=== PATIENT | female | born 1995 | race Caucasian/White ===

== ENCOUNTER 2024-03-31 08:13 | Outpatient (RCR) | payer OTHER, SELFPAY ==
[2024-03-31 09:15] VITALS: BP 126/73; PULSE 85
== END 2024-06-03 08:19 | disposition home or self-care (01) ==
LOC: ANHOBOP 08:13
PROVIDERS: Visit Provider Obstetrics & Gynecology
DX: O36.8130 Decreased fetal movements, third trimester, not applicable or unspecified (principal); Z3A.34 34 weeks gestation of pregnancy
CPT/HCPCS: 59025

== ENCOUNTER 2024-04-22 14:26 | Outpatient (CLI) | payer OTHER, SELFPAY ==
[2024-04-22 14:56] VITALS: BP 131/83; PULSE 93
[2024-04-22 14:57] LABS: Basophils Percent Auto 0.2 % (0.2-1.2); Eosinophils Absolute Auto 0.1 K/mm3 (0-0.3); Eosinophils Percent Auto 0.4 % (0-4.4); Hematocrit 37.6 % (37.0-47.0); Hemoglobin 12.5 g/dL (12.0-15.0); Immature Granulocyte Absolute 0.05 K/mm3 (0.00-0.031); Immature Granulocyte Percent A 0.4 % (0-0.5); Lymphocytes Absolute Auto 1.61 K/mm3 (0.9-3.2); Lymphocytes Percent Auto 11.9 % (18.3-44.2); Mean Corpuscular HGB Conc 33.2 g/dl (32-36); Mean Corpuscular Hemoglobin 29.3 pg (26-34); Mean Corpuscular Volume 88.3 fl (80-100); Mean Platelet Volume 10.1 fl (7.4-10.4); Monocytes Absolute Auto 0.5 K/mm3 (0.1-0.6); Monocytes Percent Auto 3.8 % (2.6-8.5); Neutrophils Absolute Auto 11.3 K/mm3 (1.3-6.7); Neutrophils Percent Auto 83.3 % (45.5-73.1); Platelet Count Result 318 k/mm3 (150-375); Red Blood Count 4.26 M/mm3 (4.2-5.4); Red Cell Distribution Width 14.2 % (11.5-14.5); White Blood Count 13.6 K/mm3 (4.5-10.0)
[2024-04-22 15:00] VITALS: BP 128/80; PULSE 88
[2024-04-22 15:07] LABS: Alanine Aminotransferase 14 U/L (6-35); Albumin Level 3.8 g/dL (3.5-5.1); Alkaline Phosphatase 147 U/L (38-126); Anion Gap 11 mmol/L (4-12); Aspartate Amino Transferase 17 U/L (14-36); Bilirubin,Total 0.3 mg/dL (0.2-1.3); Blood Urea Nitrogen 8 mg/dL (7-17); Calcium 9.3 mg/dL (8.4-10.2); Carbon Dioxide 19 mmol/L (22-30); Chloride 107 mmol/L (98-107); Estimated Glomerular Filt Rate > 60; Glucose 127 mg/dL (65-110); Sodium 137 mmol/L (137-145); Uric Acid 4.3 mg/dL (2.5-7.5)
[2024-04-22 15:15] VITALS: BP 120/70; PULSE 79
[2024-04-22 15:20] LABS: Total Protein Urine Random 24 mg/dL; Ur Ttl Prot Creatinine Ratio 0.17 mg/mg (0-0.20)
[2024-04-22 15:24] LABS: Appearance Urine Cloudy (Clear); Bacteria Urine 1+ /hpf; Bilirubin Urine Negative (Negative); Blood Urine Negative (Negative); Color Urine Yellow (Yellow); Glucose Urine UA Negative (Negative); Ketones Urine Trace mg/dL (Negative); Leukocyte Esterase Ur 1+ LEU/UL (Negative); Need Manual Microscopic Reviewed; Nitrate Urine Negative (Negative); Non Pathogenic Casts 0-2; Protein Urine 1+ mg/dL (Negative); Specific Grav Ur 1.021 (1.001-1.035); Squamous Epithelial Cell Urine Many /hpf (Few); WBC Urine 21-50 /hpf (0-3); pH Urine 6.5 (5.0-9.0)
[2024-04-22 15:25] LABS: Add Urine Microscopic? YES
[2024-04-22 15:30] VITALS: BP 119/62; PULSE 80
[2024-04-22 15:40] VITALS: BP 128/80; PULSE 80
== END 2024-04-22 15:42 | disposition home or self-care (01) ==
LOC: ANHOBOP 14:32 → ANHLDR 14:40
PROVIDERS: PCP Physician Assistant; Visit Provider Obstetrics & Gynecology
DX: O13.9 Gestational [pregnancy-induced] hypertension without significant proteinuria, unspecified trimester (principal); Z3A.00 Weeks of gestation of pregnancy not specified
CPT/HCPCS: 36415; 59025; 80053; 81001; 82570; 84156; 84550; 85025; 87086; 87088; 99199

== ENCOUNTER 2024-05-10 22:16 | Outpatient (CLI) | payer OTHER, SELFPAY ==
[2024-05-10 22:45] VITALS: BP 137/94; PULSE 73
[2024-05-10 23:00] VITALS: BP 135/86; PULSE 75
== END 2024-05-10 23:19 | disposition home or self-care (01) ==
LOC: ANHOBOP 23:12 → ANHLDR 23:13
PROVIDERS: PCP Physician Assistant; Visit Provider Obstetrics & Gynecology
DX: O13.9 Gestational [pregnancy-induced] hypertension without significant proteinuria, unspecified trimester (principal)
CPT/HCPCS: 99199

== ENCOUNTER 2024-05-13 04:35 | Inpatient (IN) | payer OTHER, SELFPAY ==
[2024-05-13] VITALS (244 sets, daily range): BP systolic 91–155; BP diastolic 56–126; PULSE 61–110; TEMP 36.2–37; O2SAT 96–100; BMI 38.7
--- NOTE | 2024-05-13 05:04 | LDADM ---
This patient, Stephanie Bryan, was admitted to Labor/Delivery/Recovery 109 on 05/13/24 at 04:35. Plans for labor, pain management and were discussed with patient. Patient/family oriented to hospital policies and general routines including ID bracelet, bed and alarms, visiting hours, pain management, procedures, bathroom and other care routines, personal items, smoking policy, room service/diet and guest tray routines, security routines, and visiting hours. Patient/Family are encouraged to report perceived risks to care and to ask questions if they do not understand what they are told or what they should do. See OBIX for further documentation.
[2024-05-13 05:34] LABS: Basophils Percent Auto 0.2 % (0.2-1.2); Eosinophils Absolute Auto 0.1 K/mm3 (0-0.3); Eosinophils Percent Auto 0.8 % (0-4.4); Hematocrit 37.2 % (37.0-47.0); Hemoglobin 12.6 g/dL (12.0-15.0); Immature Granulocyte Absolute 0.07 K/mm3 (0.00-0.031); Immature Granulocyte Percent A 0.5 % (0-0.5); Lymphocytes Absolute Auto 2.21 K/mm3 (0.9-3.2); Lymphocytes Percent Auto 16.4 % (18.3-44.2); Mean Corpuscular HGB Conc 33.9 g/dl (32-36); Mean Corpuscular Hemoglobin 29.9 pg (26-34); Mean Corpuscular Volume 88.4 fl (80-100); Mean Platelet Volume 10.3 fl (7.4-10.4); Monocytes Absolute Auto 0.6 K/mm3 (0.1-0.6); Monocytes Percent Auto 4.4 % (2.6-8.5); Neutrophils Absolute Auto 10.5 K/mm3 (1.3-6.7); Neutrophils Percent Auto 77.7 % (45.5-73.1); Platelet Count Result 300 k/mm3 (150-375); Red Blood Count 4.21 M/mm3 (4.2-5.4); Red Cell Distribution Width 14.7 % (11.5-14.5); White Blood Count 13.5 K/mm3 (4.5-10.0)
[2024-05-13] MEDS: OXYTOCIN 30 UNITS/NS 500 ML 30 UNITS/500 ML BAG 6 UNITS IV CONT (05:42)
[2024-05-13] MEDS: LACTATED RINGERS 1,000 ML 125 ML IV CONT ×4 (05:43→23:00)
--- NOTE | 2024-05-13 06:12 | PM.IMHP ---
H&P: HPI History of Present Illness Date/Time: 05/13/24 06:12 Chief Complaint: Postdate Narrative: 29-year-old 1 para 0 whose last menstrual period is unknown, EDC is 05/08/2024 confirmed by early ultrasound presents at 40 and half weeks gestation for induction of labor. Her blood pressures were starting to mildly rise. She is negative for group B strep. PMFSH Past Medical History Medical History Acne Migraines Suppression of menses Surgical History Surgical History [place] teeth removed Family History Family History Grandparent Bladder cancer paternal grandfather Cancer of kidney paternal grandfather Social History Social History Smoking status: Never smoker Second hand tobacco smoke exposure: Yes Alcohol intake: current Alcohol use details: social Substance use: never Substance use type: does not use Do You Feel Safe in your Home?: Yes Lack of Transportation: No Lack of Food: Never True Current Housing: I Have Housing Concerned About Future Housing: No Difficulty Paying Gas/Electric Bills: No Difficulty Paying for Meds: No Currently Unemployed: No Education: Bachelor's Degree Difficulty w/ Childcare or Family Care: No Living arrangements: with family Occupation/Education: occupation Gender identity (if verbalized by the patient): Female Sexual Orientation (if Verbalized by the Patient): Straight or Heterosexual Spiritual care concerns: No Meds Home Medications and Allergies Home Medications Medication Instructions Recorded Confirmed Type vits no.126-ferrous fum 1 tablet PO 09/18/23 10/16/23 History 28 mg iron-folic acid 800 mcg tablet (Classic ) labetalol 100 mg tablet 100 mg PO Q12H 04/22/24 05/13/24 History tvvrrdrhjv-isajqtqamwqbz-jdivjgqm cap 05/13/24 History 50 mg-300 mg-40 mg capsule Allergies Allergy/AdvReac Type Severity Reaction Status Date / Time No Known Allergies Allergy Verified 10/16/23 11:08 Vital Signs Vital Signs - 24 hr 05/13/24 05:04 05/13/24 05:26 05/13/24 05:31 Pulse Rate 84 80 Blood Pressure 149/85 H 137/88 Oxygen Delivery Room Air 05/13/24 05:45 05/13/24 06:01 Pulse Rate 85 82 Blood Pressure 128/91 H 132/63 Oxygen Delivery Exam Const: General: cooperative, healthy appearing and comfortable Nutritional Appearance: average body habitus Orientation/consciousness: oriented to person, oriented to place and oriented to time Resp: Effort & Inspection: normal respiratory effort Cardio: Rate: regular rate Rhythm: regular rhythm Heart sounds: S1 normal heart sound present and S2 normal heart sound present GI: Inspection: normal to inspection ( Gravid soft uterus) : External Female Exam: normal external appearance Speculum Exam - Vagina: normal appearance of the vagina Speculum Exam - Cervix: normal appearance of the cervix ( cervix 2/50/2. AROM clear. FHTs reassuring) H&P: Results Labs Labs: Short CBC 05/13/24 Range/Units 05:27 WBC 13.5 H (4.5-10.0) K/mm3 Hgb 12.6 (12.0-15.0) g/dL Hct 37.2 (37.0-47.0) % Plt Count 300 (150-375) k/mm3 Assessment and Plan Assessment and plan (1) Term : Code(s): Z34.90 - Encounter for supervision of normal , unspecified, unspecified trimester Status: Acute Assessment and Plan: medical induction of labor. Spontaneous vaginal delivery is expected. She has an epidural candidate
[2024-05-13 06:16] LABS: Rapid Plasma Reagin Non-Reactive (NonReactive)
[2024-05-13 06:24] LABS: HIV 1/2 Ab P24 Ag Result Negative (Negative)
--- NOTE | 2024-05-13 06:44 | WPDANESEPP ---
Anes - Eval Pre Procedure Procedure: Labor Epidural Date/Time: 05/13/24 06:44 Surgeon: Tamera Preop Diagnosis: Labor Pain Pre Op Diagnosis: IOL Patient Data Age: 29 Gender: F Height: 1.75 m Weight: 119 kg Last Vital Signs Temp 36.7 C 05/13/24 06:43 Pulse 80 05/13/24 06:30 BP 132/87 05/13/24 06:30 Pulse Ox 99 05/13/24 06:42 O2 Del Method Room Air 05/13/24 05:04 Allergies Allergy/AdvReac Type Severity Reaction Status Date / Time No Known Allergies Allergy Verified 10/16/23 11:08 Home Medications Medication Instructions Recorded Confirmed Type vits no.126-ferrous fum 1 tablet PO 09/18/23 10/16/23 History 28 mg iron-folic acid 800 mcg tablet (Classic ) labetalol 100 mg tablet 100 mg PO Q12H 04/22/24 05/13/24 History svqsesjqbo-yfppzmzzbqkgr-cyxhoclw cap 05/13/24 History 50 mg-300 mg-40 mg capsule Laboratory Tests 05/13/24 05:27 WBC 13.5 H K/mm3 (4.5-10.0) RBC 4.21 M/mm3 (4.2-5.4) Hgb 12.6 g/dL (12.0-15.0) Hct 37.2 % (37.0-47.0) MCV 88.4 fl (80-100) MCH 29.9 pg (26-34) MCHC 33.9 g/dl (32-36) RDW 14.7 H % (11.5-14.5) Plt Count 300 k/mm3 (150-375) MPV 10.3 fl (7.4-10.4) Immature Gran % (Auto) 0.5 % (0-0.5) Neut % (Auto) 77.7 H % (45.5-73.1) Lymph % (Auto) 16.4 L % (18.3-44.2) [place] % (Auto) 4.4 % (2.6-8.5) Eos % (Auto) 0.8 % (0-4.4) Baso % (Auto) 0.2 % (0.2-1.2) Lymph # (Auto) 2.21 K/mm3 (0.9-3.2) [place] # (Auto) 0.6 K/mm3 (0.1-0.6) Eos # (Auto) 0.1 K/mm3 (0-0.3) Baso # (Auto) 0.0 K/mm3 (0.0-0.1) Abs Immat Gran (auto) 0.07 H K/mm3 (0.00-0.031) Absolute Neuts (auto) 10.5 H K/mm3 (1.3-6.7) Absolute Nucleated RBC 0.000 K/mm3 (0.0-0.012) Nucleated RBC % 0.0 % (0.0-0.2) RPR Non-reactive (NonReactive) HIV 1&2 Ab/P24 Ag 4thGn Negative (Negative) Blood Type B Positive Antibody Screen Negative : gestational age (NEENA 05/08/24, ) Patient hx anesthesia problems: none Family hx anesthesia problems: none Results Review: All pre-operative results and documents have been reviewed as part of the pre-operative evaluation. [facility] Past Medical History Medical History Acne Migraines Suppression of menses Surgical History Surgical History [place] teeth removed Family History Family History Grandparent Bladder cancer paternal grandfather Cancer of kidney paternal grandfather Social History Social History Smoking status: Never smoker Second hand tobacco smoke exposure: Yes Alcohol intake: current Alcohol use details: social Substance use: never Substance use type: does not use Do You Feel Safe in your Home?: Yes Lack of Transportation: No Lack of Food: Never True Current Housing: I Have Housing Concerned About Future Housing: No Difficulty Paying Gas/Electric Bills: No Difficulty Paying for Meds: No Currently Unemployed: No Education: Bachelor's Degree Difficulty w/ Childcare or Family Care: No Living arrangements: with family Occupation/Education: occupation Gender identity (if verbalized by the patient): Female Sexual Orientation (if Verbalized by the Patient): Straight or Heterosexual Spiritual care concerns: No Exam Day of Procedure 05/13/24 06:44 Patient weight: obese Heart: regular rate and rhythm Lungs: normal air movement Airway: Mallampati scale class II Neurological: alert and oriented
--- NOTE | 2024-05-13 11:42 | PM.OBPNLAB ---
Pain Control Date/time seen: 05/13/24 11:42 Pain control: tolerating well Pelvic Exam Dilation (cm): 4 Effacement (%): 80 station: -1 Amniotic membrane status: Leaking
[2024-05-13] MEDS: fentaNYL CITRATE INJ (*CRX) 100 MCG/2 ML VIAL 50 MCG IV PUSH (17:18)
--- NOTE | 2024-05-13 17:46 | PM.OBPNLAB ---
Pain Control Date/time seen: 05/13/24 17:46 Pain control: tolerating well Pelvic Exam Dilation (cm): 5 Effacement (%): 80 station: -1 Amniotic membrane status: Leaking
[2024-05-13] MEDS: fentaNYL CITRATE INJ (*CRX) 100 MCG/2 ML VIAL IV PUSH (20:45)
--- NOTE | 2024-05-13 21:19 | PM.OBPNLAB ---
Pain Control Date/time seen: 05/13/24 21:19 Pain control: tolerating well Pelvic Exam Dilation (cm): 5 Effacement (%): 80 station: -1 Amniotic membrane status: Leaking
[2024-05-14] VITALS (221 sets, daily range): BP systolic 67–139; BP diastolic 38–97; PULSE 71–151; RESP 16–18; TEMP 36.2–37.7; O2SAT 82–100
[2024-05-14] MEDS: AMPICILLIN 2 GM/NS 100 ML 2 GM/100 ML BAG IVPB (00:11)
[2024-05-14] MEDS: LACTATED RINGERS 1,000 ML 125 ML IV CONT ×2 (02:43→06:54)
[2024-05-14] MEDS: ONDANSETRON INJ 4 MG/2 ML VIAL IV PUSH ×2 (02:44→10:22)
[2024-05-14] MEDS: AMPICILLIN 1 GM/NS 50 ML 1 GM/50 ML BAG IVPB ×2 (03:50→08:44)
[2024-05-14] MEDS: DEXTROSE 5%/LACTATED RINGERS 500 ML 999 ML IV CONT (03:51)
[2024-05-14] MEDS: OXYTOCIN 30 UNITS/NS 500 ML 30 UNITS/500 ML BAG 6 UNITS IV CONT (03:51)
[2024-05-14] MEDS: CALCIUM CARBONATE (TUMS) 500 MG (200 MG ELEMENTAL) 400 MG PO (03:56)
--- NOTE | 2024-05-14 05:16 | PM.OBPNLAB ---
Pain Control Date/time seen: 05/14/24 05:16 Pain control: tolerating well and epidural Pelvic Exam Dilation (cm): 8 Effacement (%): 100 station: -1 Amniotic membrane status: Leaking
[2024-05-14] MEDS: ACETAMINOPHEN 500 MG TABLET 1000 MG PO ×2 (06:50→13:25)
[2024-05-14] MEDS: LABETALOL HCL 100 MG TABLET PO (08:44)
--- NOTE | 2024-05-14 08:55 | PM.OBPNLAB ---
Pain Control Date/time seen: 05/14/24 08:55 Pain control: tolerating well and epidural Pelvic Exam Dilation (cm): 10 Effacement (%): 100 station: 0 Amniotic membrane status: Leaking
--- NOTE | 2024-05-14 12:54 | P.PCNOB_ITS ---
OB - Vaginal Delivery Note Procedure Delivery date: 05/14/24 Events: Other (Postdate ) Delivery monitor: External FHT and Internal Uterine Route of delivery: Episiotomy description: None Laceration Description: Perineal - 1st Degree Delivery repair: vicryl Specimen: No Quantitative Blood Loss (ml): 161 Anesthesia type: Epidural Disposition: Floor Complications: No immediate complications Narrative: patient was moved from duction of labor on 05/13/2024. Artificial rupture membranes performed about 0 600. She had a very prolonged the 1st stage of labor until she was completely dilated she then pushed delivered head spontaneously in the CELESTE position. Anterior posterior shoulder delivered spontaneously. Cord clamped x2 and cut and passed in stable given Apgars of 7 [id number] 9 [id number]. Cord blood was drawn. Placenta delivered intact spontaneously. Twenty of Pitocin placed IV to help firm the uterus. After speculum lateral sidewalls no injury was seen. Monitor baby doing the findings at time of dictation the 1st degree midline tear was closed with 2 [id number] of 0 Vicryl [place] Baby Date of : 05/14/24 Time of : 12:34 Gestational Age by Date: 40 Infant gender: Male position: Right Occiput Anterior Placenta delivery description: Spontaneous Cord Vessel Description: 3 Vessels and Clamped/Cut score one minute: 7 score five minutes: 9
--- NOTE | 2024-05-14 12:56 | PM.DS ---
DS: Admitting Diagnosis Discharge Date 05/16/24 Admitting Diagnosis term DS: Discharge Diagnosis Discharge Diagnosis (1) Term : Code(s): Z34.90 - Encounter for supervision of normal , unspecified, unspecified trimester Status: Acute DS: Summary Hospital Course Reason for hospitalization: patient was admitted for induction of labor on 05/13/2024. She underwent spontaneous vaginal delivery on 05/14 24 at 12:34 p.m.. Hospital Course: Patient's hospital course unremarkable she remained afebrile. She was up, voiding without difficulty, eating regular diet, ambulating, breast-feeding, and generally without complaints. Time Spent with Patient Time attestation: Total time spent providing and/or coordinating discharge services: Exam Const: General: cooperative, healthy appearing and comfortable Nutritional Appearance: overweight Orientation/consciousness: oriented to person, oriented to place and oriented to time Resp: Effort & Inspection: normal respiratory effort Cardio: Rate: regular rate Rhythm: regular rhythm Heart sounds: S1 normal heart sound present and S2 normal heart sound present GI: Inspection: normal to inspection Discharge Plan Discharge Attending physician on discharge: Stephen Villegas Discharging Clinician: Stephen Villegas Patient Disposition: Home, Self-Care Activity: may shower and pelvic rest Diet: heart healthy Wound Care Instructions: follow printed instructions Patient Instructions: Antibiotic Form Stand Alone Forms: General Discharge Information Follow-up/Referrals: Stephen Villegas MD [Physician] - Discharge Medications: Continued Classic 28 mg iron- 800 mcg tablet 1 tablet PO labetalol 100 mg Tablet 100 mg PO Q12H xmtbioemxu-ehbbqwuwizgws-xizd 50-300-40 mg capsule Date of admission: 05/13/24 04:35 Primary Care Provider: NasimaAdelaida Admitting Provider: Stephen Villegas Attending physician on admission: Stephen Villegas Condition: Stable
[2024-05-14] MEDS: OXYTOCIN 30 UNITS/NS 500 ML 30 UNITS/500 ML BAG 125 UNITS IV CONT (13:24)
--- NOTE | 2024-05-14 15:18 | OBPPTRN ---
Patient transferred to post room #276 via wheelchair. Support person present. Oriented to unit, room, information board, rooming in, admission packet and security measures. Patient verbalizes understanding.
[2024-05-14] MEDS: IBUPROFEN 600 MG TABLET PO (16:00)
[2024-05-15 00:41] VITALS: BP 119/74; PULSE 76; RESP 18; TEMP 36.4; O2SAT 99
[2024-05-15] MEDS: DIBUCAINE 1% OINTMENT 30 GM TUBE 1 APPLIC TOPICAL (00:41)
[2024-05-15 04:00] VITALS: BP 120/69; PULSE 85
[2024-05-15] MEDS: IBUPROFEN 600 MG TABLET PO ×2 (04:07→23:32)
--- NOTE | 2024-05-15 05:38 | PM.OBPNVD ---
OB - PN: Subj Subjective Date/time seen: 05/15/24 05:39 Patient comments: no complaints and pain well controlled baby status: doing well OB - PN: Obj Data Labs 05/13/24 05:27 OB - PN A/P Plan day: 1 Plan: routine care Time Spent With Patient Time: Total time spent is greater than 50% in coordination of care (as documented) at patient's floor/unit and/or counseling patient: Time with patient: less than 15 minutes Exam Const: General: cooperative, healthy appearing and comfortable Nutritional Appearance: average body habitus Orientation/consciousness: oriented to person, oriented to place and oriented to time Resp: Effort & Inspection: normal respiratory effort Cardio: Rate: regular rate Rhythm: regular rhythm Heart sounds: S1 normal heart sound present and S2 normal heart sound present GI: Inspection: normal to inspection
[2024-05-15 06:56] LABS: Hematocrit 30.9 % (37.0-47.0)
[2024-05-15 07:35] VITALS: BP 110/79; PULSE 64; RESP 16; TEMP 37; O2SAT 100
[2024-05-15] MEDS: DOCUSATE SODIUM 100 MG CAPSULE PO (08:25)
[2024-05-15] MEDS: MULTIVIT/MIN/PREN/FOL AC/IRON TABLET 1 TAB PO (08:25)
[2024-05-15] MEDS: ACETAMINOPHEN 325 MG TABLET 650 MG PO ×2 (08:29→19:23)
--- NOTE | 2024-05-15 09:52 | PC.NURSE ---
Mother verbalizes she is able to independently latch infants with appropriate positioning and alignment. She denies any nipple discomfort and is responsively . Infant is currently meeting outcomes for weight, output, jaundice, blood sugar and feeding frequencies of 8-12 times in 24 hours. Mother declines any additional assistance or education at this time. Mother is encouraged to call for assistance if her infant doesn?t latch, pain with latching, questions or concerns. Mother voiced understanding of information shared along with the mom/baby guide for an additional resource. Reported to the Primary RN.
--- NOTE | 2024-05-15 11:21 | WPDANLDPN2 ---
Anes-Prog Note L&D Date/Time: 05/15/24 11:21 Neuro status: Neuro function grossly intact. Cardiovascular status: normal Respiratory status: normal Airway patency: baseline Mental status: baseline Post-Op hydration status: normal Vital Signs: Last Vital Signs Temp 37.0 C 05/15/24 07:35 Pulse 64 05/15/24 07:35 Resp 16 05/15/24 07:35 BP 110/79 05/15/24 07:35 Pulse Ox 100 05/15/24 07:35 O2 Del Method Room Air 05/15/24 06:40 Pain score (VAS): 0 I/O: Intake & Output 05/14/24 05/15/24 05/15/24 23:59 07:59 15:59 Intake Total 620 550 240 Output Total 1100 1100 450 Balance -480 -550 -210 Post-procedural complaints: none Patient feedback: Patient satisfied with anesthetic care.
[2024-05-15 12:52] VITALS: BP 131/81; PULSE 82; RESP 16; TEMP 36.9; O2SAT 98
--- NOTE | 2024-05-15 14:50 | PC.NURSE ---
Instructions given on cleaning, care, usage, that there should be no pain, pumping schedule for milk production, collection, and storage of human milk. Patient was assessed for correct placement, flange size, to pump for comfort and nipple stretching/stimulation for adequate milk production. Mother does not plan to use her breastpump until she returns to work in 12 weeks. information provided for post-discharge questions.?Mother voiced understanding.
[2024-05-15 16:15] VITALS: BP 100/55
[2024-05-15 19:20] VITALS: BP 131/92; PULSE 72; RESP 18; TEMP 36.6; O2SAT 100
[2024-05-15] MEDS: LANOLIN (LANSINOH) 7.5 GM CREAM 1 APPLIC TOPICAL (19:24)
[2024-05-16 00:20] VITALS: BP 131/73; PULSE 90
[2024-05-16 05:00] VITALS: BP 115/71; PULSE 87
--- NOTE | 2024-05-16 05:53 | PM.OBPNVD ---
OB - PN: Subj Subjective Date/time seen: 05/16/24 05:53 Patient comments: no complaints and pain well controlled baby status: doing well and nursing well OB - PN: Obj Data Labs 05/15/24 03:35 Labs: Laboratory Results - last 24 hr 05/15/24 03:35 Hgb 10.0 L Hct 30.9 L OB - PN A/P Plan day: 2 Plan: routine care, discharge home and follow up 6 weeks Time Spent With Patient Time: Total time spent is greater than 50% in coordination of care (as documented) at patient's floor/unit and/or counseling patient: Time with patient: less than 15 minutes Exam Const: General: cooperative, healthy appearing and comfortable Nutritional Appearance: average body habitus Orientation/consciousness: oriented to person, oriented to place and oriented to time Resp: Effort & Inspection: normal respiratory effort Cardio: Rate: regular rate Rhythm: regular rhythm Heart sounds: S1 normal heart sound present and S2 normal heart sound present GI: Inspection: normal to inspection
[2024-05-16 07:30] VITALS: BP 130/84; PULSE 80; RESP 16; TEMP 36.6
[2024-05-16] MEDS: MULTIVIT/MIN/PREN/FOL AC/IRON TABLET 1 TAB PO (09:18)
[2024-05-16] MEDS: IBUPROFEN 600 MG TABLET PO (09:18)
[2024-05-18 09:33] VITALS: BP 142/92; PULSE 76; RESP 16; TEMP 36.7; O2SAT 100
== END 2024-05-16 13:15 | disposition home or self-care (01) | DRG 807 ==
LOC: ANHLDR 05-14 12:58 → ANHOB2 05-14 15:25
PROVIDERS: Admitting Provider Obstetrics & Gynecology; PCP Physician Assistant; Visit Provider Obstetrics & Gynecology
DX: O63.0 Prolonged first stage (of labor) (principal); Z37.0 Single live birth; O70.0 First degree perineal laceration during delivery; Z3A.40 40 weeks gestation of pregnancy
CPT/HCPCS: 36415; 85014; 85018; 85025; 86592; 86703; 86850; 86900; 86901; A9270; G0432; J0290; J2405; J2590; J2795; J3010; J7120; J7121

== ENCOUNTER 2024-06-02 12:44 | Outpatient (RCR) | payer OTHER, SELFPAY ==
--- NOTE | 2024-06-02 15:02 | PC.NURSE ---
In- 1230 Out- 1325 Reason for visit: Mom questioning whether baby has a good latch, and if she is transferring enough milk. She also wonders if baby has a shallow latch. History: Baby is 20 days old, mom says baby nurses from 4-10pm for 5 min and then falls asleep. She states it feels like he wants to nurse from 4-10pm . She reports in the morning he nurses for 15-20 min without difficulty, but in the evenings he wants to nurse way more frequently. Mom reports she pumps about 5-7ml off of a breast that she has just fed on and about 2 oz off of a breast that she hasn't just previously fed the baby on. She reports no pain with feeding but complains sometimes infant pushes himself off of the breast. Infant History: Mom reports baby passed his weight at 6 days old, she reports he has frequent voids and stools in the day (6-8 of each a day), and feeds 8-15 times in a 24 hour period. She reports his feeds last for about 30 min overnight, and he wakes when hungry most of the time. Observations: Discussed with mother her successes, concerns and any questions she has. Reviewed positioning and alignment, supporting breast, off-centered (asymmetrical latch) and leading with the chin with big, open, wide gape. Infant latched optimally to the right breast in cross cradle position. had an appropriate latch with his upper and lower lips sealed around the nipple. He was sucking in the appropriate rocking motion and had a suck ratio of 1 to 1 at times and 2 to 1 at times. The went from fussy appearing hungry to relaxed and sleepy at the end of the feed. The was able to maintain latch without discomfort to mother. The infant fed for about 15 min. weight: 3311g Lowest weight: 3157g weight today: 3628g Plan of Care: Reviewed cluster feeding in newborns with mom and explained that often infants will cluster feed in the evenings to help prepare moms milk supply for the next day. Encouraged mom to hold baby close to the breast and push on his bottom to bring him closer if he starts slipping off the breast or pushes himself away. Education given on expecting cluster feeding for the first 6 weeks and then feeding should space out. Reviewed signs of a correct latch with infants wide open mouth, lips sealed around breast, asymetrical latch and listening for babies swallows. Follow up plans: Mom is to call with further concerns or questions about babies feeding schedule. If does not continue to gain weight or increases in fussiness after a feed she was also encouraged to call for a follow up.
== END 2024-08-31 23:59 | disposition home or self-care (01) ==
LOC: ANHOBOP 12:44
PROVIDERS: PCP Physician Assistant; Visit Provider Pediatrics
DX: Z39.1 Encounter for care and examination of lactating mother (principal)
CPT/HCPCS: 99212; G0463

== ENCOUNTER 2024-08-09 00:28 | Emergency (ER) | payer OTHER, SELFPAY ==
--- NOTE | ~2024-08-09 | CT_ITS ---
EXAMINATION: CT abdomen pelvis w con DATE: 08/09/2024 01:49 INDICATION: Gallbladder attack. TECHNIQUE: Computed tomography (CT) of the abdomen and pelvis was performed with 100 mL Omnipaque 350 intravenous contrast. Automated exposure control and iterative reconstruction technique were employe d. The dose-length product was 1542.08 mGy-cm. COMPARISON: None. FINDINGS: The visualized portions of lung bases demonstrate minimal atelectasis. No pleural effusion. The heart size is normal. No pericardial effusion. There is mild intrahepatic biliary duct dilatatio n. The gallbladder is distended. The common duct is dilated to 11 mm. The spleen, pancreas, adrenal g lands, and kidneys are normal. There are no dilated loops of bowel. The appendix is normal. There are no pathologically enlarged lymph nodes. There is no free intraperitoneal fluid. There is mild lumbar spondylosis. IMPRESSION: 1. Mild intrahepatic and extrahepatic biliary duct dilatation and gallbladder distention. No visible choledocholithiasis. Consider MRCP. Reviewed, dictated and finalized at location A. IMPRESSION: 1. Mild intrahepatic and extrahepatic biliary duct dilatation and gallbladder d istention. No visible choledocholithiasis. Consider MRCP.
[2024-08-09 00:39] VITALS: BP 126/65; PULSE 79; RESP 19; TEMP 36.3; O2SAT 100
[2024-08-09 00:48] LABS: BEDSIDEPREGUCG Negative (Negative)
--- NOTE | 2024-08-09 00:52 | ED_ITS ---
HPI - Abdominal Pain General Chief Complaint: Abdominal Pain Stated Complaint: I think im having a gallbladder attack Time Seen by Provider: 08/09/24 00:37 History of Present Illness HPI narrative: 29-year-old female who is 3 months presenting to the emergency department with a epigastric abdominal discomfort. She describes a sharp stabbing sensation in the middle of her abdomen that radiates towards her right side. She is concerned she is having a gallbladder attack. She had an onset this symptomatology while she was eating lunch today about 4:00 p.m.. Worsening throughout the day. Associated nausea but no vomiting. No diarrhea, constipation, urinary issues. No chest pain or shortness of breath. She had a similar episode that felt exactly the same 1 month prior but not seek medical attention. Family history of cholelithiasis requiring surgeries. Patient is obese and 3 months which does raise her risk factors for gallbladder complications although she is nontoxic appearance, no fever and otherwise appears well. Related Data Home Medications Medication Instructions Recorded Confirmed vits no.126-ferrous fum 1 tablet PO 09/18/23 10/16/23 28 mg iron-folic acid 800 mcg tablet (Classic ) labetalol 100 mg tablet 100 mg PO Q12H 04/22/24 05/13/24 dweytskmzj-zarnfuotcrvkw-ixkylivl cap 05/13/24 50 mg-300 mg-40 mg capsule Allergies Allergy/AdvReac Type Severity Reaction Status Date / Time No Known Allergies Allergy Verified 08/09/24 00:29 Review of Systems 2 Review of Systems: As reviewed above in HPI [facility] Past Medical History Medical History Acne Migraines Suppression of menses Surgical History Surgical History [place] teeth removed Family History Family History Grandparent Bladder cancer paternal grandfather Cancer of kidney paternal grandfather Social History Social History Smoking status: Never smoker Second hand tobacco smoke exposure: Yes Alcohol intake: current Alcohol use details: social Substance use: never Substance use type: does not use Do You Feel Safe in your Home?: Yes Lack of Transportation: No Lack of Food: Never True Current Housing: I Have Housing Concerned About Future Housing: No Difficulty Paying Gas/Electric Bills: No Difficulty Paying for Meds: No Currently Unemployed: No Education: Bachelor's Degree Difficulty w/ Childcare or Family Care: No Living arrangements: with family Occupation/Education: occupation Gender identity (if verbalized by the patient): Female Sexual Orientation (if Verbalized by the Patient): Straight or Heterosexual Spiritual care concerns: No Exam Narrative: GENERAL: [Well-appearing, well-nourished, and in no acute distress.] HEAD: [Normocephalic, atraumatic.] EYES: [PERRLA and EOMI.] ENT: Nares clear, no rhinorrhea or epistaxis. Mucous membranes moist. NECK: Supple. CHEST: [Clear to auscultation. No respiratory distress.] HEART: [Regular rate and rhythm]. No murmur heard. [Normal peripheral pulses.] ABDOMEN: [Soft, nondistended], tenderness to palpation in the epigastrium with a positive Guy's sign, [No rigidity or guarding] no CVA tenderness, no lower abdominal tenderness, no right or left lower quadrant tenderness EXTREMITIES: Normal range of motion. [No edema.] SKIN: Warm, dry, no rash. NEURO: [No focal deficits]. Alert and oriented [x3.] PSYCH: [Normal mood and affect.] Course Vital Signs Vital signs: Vital Signs Temperature 36.3 C L 08/09/24 00:39 Pulse Rate 79 08/09/24 00:39 Respiratory Rate 19 08/09/24 00:39 Blood Pressure 126/65 08/09/24 00:39 Pulse Oximetry 100 08/09/24 00:39 Temperature 36.3 C L 08/09/24 00:39 Pulse Rate 79 08/09/24 00:39 Respiratory Rate 19 08/09/24 00:39 Blood Pressure 126/65 08/09/24 00:39 Pulse Oximetry 100 08/09/24 00:39 MDM - Abdominal Pain MDM Narrative Medical decision making narrative: 29-year-old female that is 3 months presenting with epigastric abdominal pain radiating towards her right side. Endorses pain with eating and associated nausea. Similar episode 1 month prior. Attributed to her gallbladder. She has not had any history of abdominal surgeries and is 3 months from a vaginal delivery. Denies any pelvic complaints surge GI issues aside from the pain and nausea. No fever and she is afebrile here on recent vital signs. No tachycardia, blood pressure concerns or hypoxia. She does have a positive Guy sign which does raise suspicion for a gallbladder issue. Low suspicion for pancreatitis or gastritis. Low suspicion for cardiopulmonary process. Will obtain laboratory studies including CBC, CMP, lipase, urinalysis and urine test. She was treated with Dilaudid and Zofran for symptom control and given a fluid bolus. CT scan with contrast was obtained given that we do not have ultrasonography at this time for better delineation of her gallbladder. Patient's laboratory shows a slight leukocytosis of 12.0. No anemia. No fever here in the emergency department. Laboratory studies show normal electrolyte profile, normal kidney function panel. LFTs were markedly elevated with ALT of 143, AST of 287, alk-phos of 92 and a bilirubin normal at 1.0. Negative lipase. Patient's CT scan was read by [facility] with diffuse biliary dilatation and a CBD of 1.[address] evidence of choledocholithiasis. No gallbladder commentary, hepatic steatosis and hepatomegaly was seen. No bowel obstruction or inflammation. No hydronephrosis or nephrolithiasis. Consult was placed to the on-call GI doctor however I did not receive a phone call back after several hours. We called Dr. Carlos from Gastroenterology in relayed the imaging findings to him. Recommendations for an MRCP. Spoke to the patient regarding plan of care. Her symptoms are well controlled here in the emergency department and her pain is severely diminished. Patient would prefer to be seen outpatient by GI instead of being admitted for this scanned given that she has a at home. I felt that this was appropriate given her symptom resolution here in the emergency department and after speaking to Dr. Carlos would be happy to see her in clinic this week. We will give her the clinic information number to call this morning to schedule an appointment. She will be given as needed pain medicine and nausea controlling medications to be discharged home with until her appointment. She was given strict return preca utions including development of any fever, intractable nausea, pain or any other concerning features and she expressed understanding these instructions. She was stable for discharge after shared decision making. Medical Records Attestation: I reviewed the patient's medical records. Lab Data Attestation: I reviewed the patient's lab results. 08/09/24 01:02 08/09/24 01:02 Labs: Lab Results 08/09/24 08/09/24 Range/Units 00:46 01:02 WBC 12.0 H (4.5-10.0) K/mm3 RBC 4.01 L (4.2-5.4) M/mm3 Hgb 12.1 (12.0-15.0) g/dL Hct 36.2 L (37.0-47.0) % MCV 90.3 (80-100) fl MCH 30.2 (26-34) pg MCHC 33.4 (32-36) g/dl RDW 13.2 (11.5-14.5) % Plt Count 365 (150-375) k/mm3 MPV 9.0 (7.4-10.4) fl Immature Gran % (Auto) 0.2 (0-0.5) % Neut % (Auto) 67.5 (45.5-73.1) % Lymph % (Auto) 20.4 (18.3-44.2) % [place] % (Auto) 4.9 (2.6-8.5) % Eos % (Auto) 6.3 H (0-4.4) % Baso % (Auto) 0.7 (0.2-1.2) % Lymph # (Auto) 2.45 (0.9-3.2) K/mm3 [place] # (Auto) 0.6 (0.1-0.6) K/mm3 Eos # (Auto) 0.8 H (0-0.3) K/mm3 Baso # (Auto) 0.1 (0.0-0.1) K/mm3 Abs Immat Gran (auto) 0.03 (0.00-0.031) K/mm3 Absolute Neuts (auto) 8.1 H (1.3-6.7) K/mm3 Absolute Nucleated RBC 0.000 (0.0-0.012) K/mm3 Nucleated RBC % 0.0 (0.0-0.2) % Sodium 140 (137-145) mmol/L Potassium 4.1 (3.4-5.0) mmol/L Chloride 103 (98-107) mmol/L Carbon Dioxide 29 (22-30) mmol/L Anion Gap 8 (4-12) mmol/L BUN 16 (7-17) mg/dL Creatinine 0.80 (0.7-1.0) mg/dL Estim Creat Clear Calc 119 ml/min Estimated GFR > 60 (59 - ) Glucose 93 (65-110) mg/dL Calcium 9.0 (8.4-10.2) mg/dL Total Bilirubin 1.0 (0.2-1.3) mg/dL AST 287 H (14-36) U/L ALT 143 H (6-35) U/L Alkaline Phosphatase 92 (38-126) U/L Total Protein 7.0 (6.3-8.2) g/dL Albumin 4.1 (3.5-5.1) g/dL Lipase 173 (23-300) U/L Urine Color Yellow (Yellow) Urine Appearance Clear (Clear) Urine pH 6.0 (5.0-9.0) Ur Specific [place] 1.010 (1.001-1.035) Urine Protein Negative (Negative) mg/dL Urine Glucose (UA) Negative (Negative) mg/dL Urine Ketones Negative (Negative) mg/dL Ur Blood (Man) Negative (Negative) Urine Nitrate Negative (Negative) Urine Bilirubin Negative (Negative) Urine Urobilinogen 1.0 (<2.0) mg/dL Leukocyte Esterase Rfl Trace H (Negative) VICENTE/UL Urine RBC 0-2 (0-2) /hpf Urine WBC 11-20 H (0-3) /hpf Ur Squamous Epith Cells Few (Few) /hpf Urine Bacteria Rare /hpf Urine Casts 0-2 POC Urine HCG, Qual Negative (Negative) ABG Data Attestation: I personally reviewed and interpreted this ABG as follows: Imaging Data Attestation: I personally reviewed and interpreted this imaging study as follows: My impression: Dilated CBD 1.2 cm, no definite stone. No GB wall thickening or pericholecystic fluid. Radiologist's impression: No CT evidence of choledocholithiasis, common bile duct dilatation 1.2 cm, biliary dilation, considerations for MRCP. Discharge Plan Discharge Clinical Impression: Common bile duct (CBD) obstruction, Transaminitis Patient Disposition: Home, Self-Care Condition: Stable Instructions: Antibiotic Form, Biliary Colic (ED), Acute Nausea and Vomiting (DC), MRCP (Magnetic Resonance Cholangiopancreatography) (DC) Additional Instructions: We have spoken to her on-call GI doctor Dr. Carlos to see you outpatient in clinic. Call the clinic 1. Thing this morning to schedule appointment. Will send you home with medications for symptom control. Return at any point with any new or worsening concerns of his fever, intractable nausea, intractable pain or any other concerning features. Prescriptions: New ibuprofen 800 mg tablet 800 mg PO TID PRN (Reason: pain) Qty: 20 0RF acetaminophen [Tylenol Extra Strength] 500 mg tablet 1,000 mg PO Q8H PRN (Reason: pain) Qty: 20 0RF ondansetron 4 mg tablet,disintegrating 4 mg PO Q8H PRN (Reason: nausea and vomiting) Qty: 20 0RF No Action Classic 28 mg iron- 800 mcg tablet 1 tablet PO labetalol 100 mg Tablet 100 mg PO Q12H bydenyasqq-itzqadmhlterp-qzrc 50-300-40 mg capsule Follow-up/Referrals: David,RANDY Son [Primary Care Provider] - Alejandro Del Valle MD [Physician] - 1 Day (Common bile duct dilation, outpatient GI and MRCP setup) Time of Disposition: 04:39
[2024-08-09 01:07] LABS: Basophils Absolute Auto 0.1 K/mm3 (0.0-0.1); Basophils Percent Auto 0.7 % (0.2-1.2); Eosinophils Absolute Auto 0.8 K/mm3 (0-0.3); Eosinophils Percent Auto 6.3 % (0-4.4); Hematocrit 36.2 % (37.0-47.0); Hemoglobin 12.1 g/dL (12.0-15.0); Immature Granulocyte Absolute 0.03 K/mm3 (0.00-0.031); Immature Granulocyte Percent A 0.2 % (0-0.5); Lymphocytes Absolute Auto 2.45 K/mm3 (0.9-3.2); Lymphocytes Percent Auto 20.4 % (18.3-44.2); Mean Corpuscular HGB Conc 33.4 g/dl (32-36); Mean Corpuscular Hemoglobin 30.2 pg (26-34); Mean Corpuscular Volume 90.3 fl (80-100); Monocytes Absolute Auto 0.6 K/mm3 (0.1-0.6); Monocytes Percent Auto 4.9 % (2.6-8.5); Neutrophils Absolute Auto 8.1 K/mm3 (1.3-6.7); Neutrophils Percent Auto 67.5 % (45.5-73.1); Platelet Count Result 365 k/mm3 (150-375); Red Blood Count 4.01 M/mm3 (4.2-5.4); Red Cell Distribution Width 13.2 % (11.5-14.5)
[2024-08-09] MEDS: ONDANSETRON INJ 4 MG/2 ML VIAL IV PUSH ×2 (01:13→04:41)
[2024-08-09] MEDS: LACTATED RINGERS 1,000 ML 999 ML IV CONT (01:13)
[2024-08-09] MEDS: HYDROmorphone HCL INJ (*CRX) 1 MG/ML SYR IV PUSH (01:13)
[2024-08-09 01:17] LABS: Add Urine Microscopic? YES; Appearance Urine Clear (Clear); Bacteria Urine Rare /hpf; Bilirubin Urine Negative (Negative); Blood Urine Negative (Negative); Color Urine Yellow (Yellow); Glucose Urine UA Negative (Negative); Ketones Urine Negative (Negative); Leukocyte Esterase Ur Trace LEU/UL (Negative); Nitrate Urine Negative (Negative); Non Pathogenic Casts 0-2; Protein Urine Negative (Negative); RBC Urine 0-2 /hpf (0-2); Squamous Epithelial Cell Urine Few /hpf (Few)
[2024-08-09 01:19] LABS: Potassium 4.1 mmol/L (3.4-5.0)
--- NOTE | 2024-08-09 01:22 | PC.NURSE ---
this patient is ambulatory to ER. Patient is accompanied by male. This patient is complaining of abdominal pain. Patient is well kempt and is alert and oriented x's 4. IV medications given and fluids are running.
[2024-08-09 01:27] LABS: Alanine Aminotransferase 143 U/L (6-35); Albumin Level 4.1 g/dL (3.5-5.1); Alkaline Phosphatase 92 U/L (38-126); Anion Gap 8 mmol/L (4-12); Aspartate Amino Transferase 287 U/L (14-36); Blood Urea Nitrogen 16 mg/dL (7-17); Carbon Dioxide 29 mmol/L (22-30); Chloride 103 mmol/L (98-107); Estimated CRCL calculation 119 ml/min; Estimated Glomerular Filt Rate > 60; Glucose 93 mg/dL (65-110); Lipase 173 U/L (23-300); Sodium 140 mmol/L (137-145)
--- NOTE | 2024-08-09 03:01 | PC.NURSE ---
patient is complaining of nausea at this time.
--- NOTE | 2024-08-09 04:18 | PC.NURSE ---
RN made provider aware of patients nausea. ER had a high acuity patient and all staff were involved. RN checked on patient, patient is vitally stable, just states she is uncomfortable.
[2024-08-09 04:42] VITALS: BP 111/73; PULSE 67; RESP 16; TEMP 36.8; O2SAT 99
== END 2024-08-09 04:44 | disposition home or self-care (01) ==
PROVIDERS: Emergency Provider Student in an Organized Health Care Education/Training Program; PCP Physician Assistant
DX: K83.1 Obstruction of bile duct (principal); R74.01 Elevation of levels of liver transaminase levels
CPT/HCPCS: 36415; 74177; 80053; 81001; 81025; 83690; 85025; 87086; 96361; 96374; 96375; 96376; 99284; J1171; J2405; J7120; Q9967

== ENCOUNTER 2024-08-20 13:36 | Observation (INO) | payer OTHER, SELFPAY ==
--- NOTE | ~2024-08-20 | MR_ITS ---
EXAMINATION: MR MRCP wo/w con/w 3D wo ind DATE: 08/21/2024 12:18 INDICATION: Right upper quadrant abdominal pain. TECHNIQUE: Magnetic resonance imaging (MRI) of the abdomen was performed without and with 20 mL Multi Pam intravenous contrast. Sequences included coronal T2-weighted FS FSE, coronal T2-weighted FSE, a xial T1-weighted LAVA, coronal FS FIESTA, axial dual-echo T1-weighted SPGR, coronal lava-FLEX, sagitt al T2-weighted FSE, axial T2-weighted FSE, and axial DWI. Thick-slab T2-weighted FSE images were obta ined for magnetic resonance cholangiopancreatography (MRCP). Maximum intensity projection 3-D reconst ructions of the volumetric data were created by the technologist. Postcontrast sequences included cor onal LAVA-flex and time course of axial T1-weighted LAVA. COMPARISON: CT abdomen and pelvis 08/09/2024, ultrasound 08/20/2024 FINDINGS: ABDOMEN MRI: There is diffuse hepatic steatosis. There is mild intrahepatic biliary duct dilatation. The gallbladder is distended and contains gallstones. Gallbladder wall thickening is noted. The splee n, pancreas, adrenal glands, and kidneys are normal. There are no dilated loops of bowel. ABDOMEN MRCP: The common duct is dilated to 11 mm. There is no choledocholithiasis. IMPRESSION: 1. Mild intrahepatic and extrahepatic biliary duct dilatation. No choledocholithiasis. 2. Acute cholecystitis. 3. Diffuse hepatic steatosis. Reviewed, dictated and finalized at location A. T TECH IMPRESSION: 1. Mild intrahepatic and extrahepatic biliary duct dilatation. No choledocholit hiasis. 2. Acute cholecystitis. 3. Diffuse hepatic steatosis.
--- NOTE | ~2024-08-20 | US_ITS ---
US abdomen limited INDICATION: . Right upper quadrant pain. History of gallbladder abnormality. PROCEDURE: Realtime right upper abdominal ultrasound. COMPARISON: No prior studies for comparison. FINDINGS: The pancreas is normal without focal mass or pancreatic ductal dilation. Liver echotexture is increased, consistent with fatty infiltration. There is normal directional flow in the portal ve in. There is a gallstone near the gallbladder fundus. Gallbladder wall is borderline thickened measuring 3 mm. Common bile duct is dilated. Common bile duct measures 13 mm. No sonographic Guy's sign. IMPRESSION: 1: Cholelithiasis with mild gallbladder wall thickening and biliary dilatation. Consider cholecystiti s in the appropriate clinical setting. Reviewed, dictated and finalized at location B. LEAF [employer] IMPRESSION: 1: Cholelithiasis with mild gallbladder wall thickening and biliary dilatation. Consider cholecystitis in the appropriate clinical setting.
[2024-08-20 13:52] VITALS: BP 149/96; PULSE 87; RESP 16; TEMP 36.7; O2SAT 100
--- NOTE | 2024-08-20 13:52 | ED.ABDPAIN ---
HPI - Abdominal Pain General Chief Complaint: Abdominal Pain <Rachel Carvalho PA-C - Last Filed: 08/20/24 13:56> Stated Complaint: abd pain <Rachel Carvalho PA-C - Last Filed: 08/20/24 13:56> Time Seen by Provider: 08/20/24 13:52 <Rachel Carvalho PA-C - Last Filed: 08/20/24 13:56> Focused HPI: Patient is a 29-year-old female who presents the ED with report of right upper quadrant abdominal pain. Patient reports she was seen in the ED here around 2 weeks ago and told she had an abnormality with her gallbladder. She followed up with a GI specialist and was told she would need repeat blood work and imaging. She reports having worsening pain since around 10:30 a.m. this morning. She attempted taking ibuprofen at home without improvement. Pain radiates around to her right mid back. She reports nausea, denies vomiting, diarrhea, constipation, fevers, dysuria, hematuria. GENERAL: Well-appearing, Obese with BMI of 37.0, and in no acute distress. HEAD: Normocephalic, atraumatic. CHEST: Clear to auscultation. ?No respiratory distress. HEART: Regular rate and rhythm.? ABD: Focal TTP in epigastric region and RUQ, no rebound. Normoactive bs NEURO: ?Alert and oriented x3. Patient screened in triage and initial orders placed.? ?Additional care and disposition to be based upon?diagnostic testing and treatment. <Rachel Carvalho PA-C - Last Filed: 08/20/24 13:56> Source: patient <Rachel Carvalho PA-C - Last Filed: 08/20/24 13:56> Mode of arrival: ambulatory <Rachel Carvalho PA-C - Last Filed: 08/20/24 13:56> Limitations: no limitations <Rachel Carvalho PA-C - Last Filed: 08/20/24 13:56> History of Present Illness HPI narrative: per hpi <Shelley Prabhakar MD - Last Filed: 08/20/24 18:36> Related Data Home Medications: Home Medications Medication Instructions Recorded Confirmed vits no.126-ferrous fum 1 tablet PO 09/18/23 08/12/24 28 mg iron-folic acid 800 mcg tablet (Classic ) rreluyhtnj-hlvezmipkistf-caiorhvg cap 05/13/24 08/12/24 50 mg-300 mg-40 mg capsule <Rachel Carvalho PA-C - Last Filed: 08/20/24 13:56> Allergies/Adverse Reactions: Allergies Allergy/AdvReac Type Severity Reaction Status Date / Time No Known Allergies Allergy Verified 08/11/24 09:15 <Rachel Carvalho PA-C - Last Filed: 08/20/24 13:56> [facility] Past Medical History Medical History: Medical History (Updated 08/20/24 @ 18:36 by Shelley Prabhakar MD) Acne Common bile duct dilation Elevated LFTs Migraines <RANDY Bey Last Filed: 08/20/24 13:56> Surgical History Surgical History: Surgical History [place] teeth removed <RANDY Bey Last Filed: 08/20/24 13:56> Family History Family History: Family History Grandparent Bladder cancer paternal grandfather Cancer of kidney paternal grandfather <ARNDY Bey Last Filed: 08/20/24 13:56> Social History Social History: Social History Smoking status: Never smoker Second hand tobacco smoke exposure: Yes Alcohol intake: current Alcohol use details: social Substance use: never Substance use type: does not use Do You Feel Safe in your Home?: Yes Lack of Transportation: No Lack of Food: Never True Current Housing: I Have Housing Concerned About Future Housing: No Difficulty Paying Gas/Electric Bills: No Difficulty Paying for Meds: No Currently Unemployed: No Education: Bachelor's Degree Difficulty w/ Childcare or Family Care: No Living arrangements: with family Occupation/Education: occupation Gender identity (if verbalized by the patient): Female Sexual Orientation (if Verbalized by the Patient): Straight or Heterosexual Spiritual care concerns: No <Rachel Carvalho PA-C - Last Filed: 08/20/24 13:56> Exam Narrative: EXAMINATION OF ORGAN SYSTEMS/BODY AREAS: Constitutional: Vital signs per nursing GENERAL:[No acute distress, non-toxic appearing.] HEAD: Normal with no signs of head trauma. EYES: EOMI, conjunctiva normal ENT: Hearing grossly intact LUNGS: Nonlabored breathing. HEART: [Regular rate and rhythm] ABD: Soft, tender to palpation right upper quadrant EXT: Normal range of motion SKIN: [No rashes or lesions.] NEURO: [Alert and oriented x 3. No gross focal sensory or strength deficits.] PSYCH: Normal affect <Shelley Prabhakar MD - Last Filed: 08/20/24 18:36> Course Vital Signs Vital signs: Vital Signs Temperature 98.0 F 08/20/24 13:52 Pulse Rate 87 08/20/24 13:52 Respiratory Rate 16 08/20/24 13:52 Blood Pressure 149/96 H 08/20/24 13:52 Pulse Oximetry 100 08/20/24 13:52 Oxygen Delivery Room Air 08/20/24 13:52 Temperature 97.6 F 08/20/24 18:14 Pulse Rate 82 08/20/24 18:14 Respiratory Rate 16 08/20/24 18:14 Blood Pressure 110/76 08/20/24 18:14 Pulse Oximetry 99 08/20/24 18:14 Oxygen Delivery Room Air 08/20/24 13:52 <Rachel Carvalho PA-C - Last Filed: 08/20/24 13:56> Vital Signs Temperature 98.0 F 08/20/24 13:52 Pulse Rate 87 08/20/24 13:52 Respiratory Rate 16 08/20/24 13:52 Blood Pressure 149/96 H 08/20/24 13:52 Pulse Oximetry 100 08/20/24 13:52 Oxygen Delivery Room Air 08/20/24 13:52 Temperature 97.6 F 08/20/24 18:14 Pulse Rate 82 08/20/24 18:14 Respiratory Rate 16 08/20/24 18:14 Blood Pressure 110/76 08/20/24 18:14 Pulse Oximetry 99 08/20/24 18:14 Oxygen Delivery Room Air 08/20/24 13:52 <Shelley Prabhakar MD - Last Filed: 08/20/24 18:36> MDM - Abdominal Pain MDM Narrative Medical decision making narrative: MSE by OLYA in triage. <Rachel Carvalho PA-C - Last Filed: 08/20/24 13:56> MSE by OLYA in triage. // Patient presents with increased right upper quadrant pain, nausea, has had the symptoms recently and was diagnosed with CBD obstruction and was following up with GI, however she was feeling worse so they told her to come in. She does have elevated white count, LFTs and bilirubin compared to prior labs, right upper quadrant ultrasound does show possible cholecystitis. Discussed the case with General surgery who recommended admission with consult to GI and starting Zosyn; discussed with GI who recommended ordering an MRCP; discussed with hospitalist for admission. Discussed with patient and at bedside who are agreeable to [place]. <Shelley Prabhakar MD - Last Filed: 08/20/24 18:36> Lab Data Result diagrams: 08/20/24 15:31 08/20/24 15:31 <Rachel Carvalho PA-C - Last Filed: 08/20/24 13:56> Labs: Lab Results 08/20/24 08/20/24 Range/Units 15:31 16:34 WBC 10.1 H (4.5-10.0) K/mm3 RBC 4.45 (4.2-5.4) M/mm3 Hgb 13.3 (12.0-15.0) g/dL Hct 40.5 (37.0-47.0) % MCV 91.0 (80-100) fl MCH 29.9 (26-34) pg MCHC 32.8 (32-36) g/dl RDW 13.1 (11.5-14.5) % Plt Count 420 H (150-375) k/mm3 MPV 9.4 (7.4-10.4) fl Immature Gran % (Auto) 0.3 (0-0.5) % Neut % (Auto) 72.5 (45.5-73.1) % Lymph % (Auto) 18.5 (18.3-44.2) % [place] % (Auto) 5.0 (2.6-8.5) % Eos % (Auto) 3.0 (0-4.4) % Baso % (Auto) 0.7 (0.2-1.2) % Lymph # (Auto) 1.87 (0.9-3.2) K/mm3 [place] # (Auto) 0.5 (0.1-0.6) K/mm3 Eos # (Auto) 0.3 (0-0.3) K/mm3 Baso # (Auto) 0.1 (0.0-0.1) K/mm3 Abs Immat Gran (auto) 0.03 (0.00-0.031) K/mm3 Absolute Neuts (auto) 7.3 H (1.3-6.7) K/mm3 Absolute Nucleated RBC 0.000 (0.0-0.012) K/mm3 Nucleated RBC % 0.0 (0.0-0.2) % Sodium 139 (137-145) mmol/L Potassium 4.3 (3.4-5.0) mmol/L Chloride 102 (98-107) mmol/L Carbon Dioxide 28 (22-30) mmol/L Anion Gap 9 (4-12) mmol/L BUN 14 (7-17) mg/dL Creatinine 0.50 L (0.7-1.0) mg/dL Estim Creat Clear Calc 188 ml/min Estimated GFR > 60 (59 - ) Glucose 94 (65-110) mg/dL Calcium 9.8 (8.4-10.2) mg/dL Total Bilirubin 2.9 H (0.2-1.3) mg/dL AST 632 H (14-36) U/L ALT 483 H (6-35) U/L Alkaline Phosphatase 161 H (38-126) U/L Total Protein 8.0 (6.3-8.2) g/dL Albumin 4.7 (3.5-5.1) g/dL Lipase 144 (23-300) U/L Urine Color Yellow (Yellow) Urine Appearance Clear (Clear) Urine pH 6.0 (5.0-9.0) Ur Specific [place] 1.007 (1.001-1.035) Urine Protein Negative (Negative) mg/dL Urine Glucose (UA) Negative (Negative) mg/dL Urine Ketones Negative (Negative) mg/dL Ur Blood (Man) Negative (Negative) Urine Nitrate Negative (Negative) Urine Bilirubin Negative (Negative) Urine Urobilinogen 0.2 (<2.0) mg/dL Leukocyte Esterase Rfl Negative (Negative) VICENTE/UL <Rachel Carvalho PA-C - Last Filed: 08/20/24 13:56> Lab Results 08/20/24 08/20/24 Range/Units 15:31 16:34 WBC 10.1 H (4.5-10.0) K/mm3 RBC 4.45 (4.2-5.4) M/mm3 Hgb 13.3 (12.0-15.0) g/dL Hct 40.5 (37.0-47.0) % MCV 91.0 (80-100) fl MCH 29.9 (26-34) pg MCHC 32.8 (32-36) g/dl RDW 13.1 (11.5-14.5) % Plt Count 420 H (150-375) k/mm3 MPV 9.4 (7.4-10.4) fl Immature Gran % (Auto) 0.3 (0-0.5) % Neut % (Auto) 72.5 (45.5-73.1) % Lymph % (Auto) 18.5 (18.3-44.2) % [place] % (Auto) 5.0 (2.6-8.5) % Eos % (Auto) 3.0 (0-4.4) % Baso % (Auto) 0.7 (0.2-1.2) % Lymph # (Auto) 1.87 (0.9-3.2) K/mm3 [place] # (Auto) 0.5 (0.1-0.6) K/mm3 Eos # (Auto) 0.3 (0-0.3) K/mm3 Baso # (Auto) 0.1 (0.0-0.1) K/mm3 Abs Immat Gran (auto) 0.03 (0.00-0.031) K/mm3 Absolute Neuts (auto) 7.3 H (1.3-6.7) K/mm3 Absolute Nucleated RBC 0.000 (0.0-0.012) K/mm3 Nucleated RBC % 0.0 (0.0-0.2) % Sodium 139 (137-145) mmol/L Potassium 4.3 (3.4-5.0) mmol/L Chloride 102 (98-107) mmol/L Carbon Dioxide 28 (22-30) mmol/L Anion Gap 9 (4-12) mmol/L BUN 14 (7-17) mg/dL Creatinine 0.50 L (0.7-1.0) mg/dL Estim Creat Clear Calc 188 ml/min Estimated GFR > 60 (59 - ) Glucose 94 (65-110) mg/dL Calcium 9.8 (8.4-10.2) mg/dL Total Bilirubin 2.9 H (0.2-1.3) mg/dL AST 632 H (14-36) U/L ALT 483 H (6-35) U/L Alkaline Phosphatase 161 H (38-126) U/L Total Protein 8.0 (6.3-8.2) g/dL Albumin 4.7 (3.5-5.1) g/dL Lipase 144 (23-300) U/L Urine Color Yellow (Yellow) Urine Appearance Clear (Clear) Urine pH 6.0 (5.0-9.0) Ur Specific [place] 1.007 (1.001-1.035) Urine Protein Negative (Negative) mg/dL Urine Glucose (UA) Negative (Negative) mg/dL Urine Ketones Negative (Negative) mg/dL Ur Blood (Man) Negative (Negative) Urine Nitrate Negative (Negative) Urine Bilirubin Negative (Negative) Urine Urobilinogen 0.2 (<2.0) mg/dL Leukocyte Esterase Rfl Negative (Negative) VICENTE/UL <Shelley Prabhakar MD - Last Filed: 08/20/24 18:36> Imaging Data Radiologist's impression: ITS Impressions Abdomen Ultrasound 08/20/24 14:33 IMPRESSION: 1: Cholelithiasis with mild gallbladder wall thickening and biliary dilatation. Consider cholecystitis in the appropriate clinical setting. <Rachel Carvalho PA-C - Last Filed: 08/20/24 13:56> ITS Impressions Abdomen Ultrasound 08/20/24 14:33 IMPRESSION: 1: Cholelithiasis with mild gallbladder wall thickening and biliary dilatation. Consider cholecystitis in the appropriate clinical setting. <Shelley Prabhakar MD - Last Filed: 08/20/24 18:36> Discharge Plan Discharge Clinical Impression: Common bile duct dilation, Cholelithiasis, Elevated LFTs <Rachel Carvalho PA-C - Last Filed: 08/20/24 13:56> Patient Disposition: Still a Patient <Rachel Carvalho PA-C - Last Filed: 08/20/24 13:56> Condition: Serious <Rachel Carvalho PA-C - Last Filed: 08/20/24 13:56>
[2024-08-20 15:30] VITALS: BP 110/74; PULSE 78; RESP 16; TEMP 36.6; O2SAT 98
[2024-08-20] MEDS: HYDROcodone/acetaminophen (*CRX) 5-325 MG TABLET 1 TAB PO (15:30)
[2024-08-20] MEDS: ONDANSETRON INJ 4 MG/2 ML VIAL IV PUSH (15:30)
[2024-08-20 15:46] LABS: Basophils Absolute Auto 0.1 K/mm3 (0.0-0.1); Basophils Percent Auto 0.7 % (0.2-1.2); Eosinophils Absolute Auto 0.3 K/mm3 (0-0.3); Hematocrit 40.5 % (37.0-47.0); Hemoglobin 13.3 g/dL (12.0-15.0); Immature Granulocyte Absolute 0.03 K/mm3 (0.00-0.031); Immature Granulocyte Percent A 0.3 % (0-0.5); Lymphocytes Absolute Auto 1.87 K/mm3 (0.9-3.2); Lymphocytes Percent Auto 18.5 % (18.3-44.2); Mean Corpuscular HGB Conc 32.8 g/dl (32-36); Mean Corpuscular Hemoglobin 29.9 pg (26-34); Mean Platelet Volume 9.4 fl (7.4-10.4); Monocytes Absolute Auto 0.5 K/mm3 (0.1-0.6); Neutrophils Absolute Auto 7.3 K/mm3 (1.3-6.7); Neutrophils Percent Auto 72.5 % (45.5-73.1); Platelet Count Result 420 k/mm3 (150-375); Red Blood Count 4.45 M/mm3 (4.2-5.4); Red Cell Distribution Width 13.1 % (11.5-14.5); White Blood Count 10.1 K/mm3 (4.5-10.0)
[2024-08-20 15:49] LABS: Alanine Aminotransferase 483 U/L (6-35); Albumin Level 4.7 g/dL (3.5-5.1); Alkaline Phosphatase 161 U/L (38-126); Anion Gap 9 mmol/L (4-12); Aspartate Amino Transferase 632 U/L (14-36); Bilirubin,Total 2.9 mg/dL (0.2-1.3); Blood Urea Nitrogen 14 mg/dL (7-17); Calcium 9.8 mg/dL (8.4-10.2); Carbon Dioxide 28 mmol/L (22-30); Chloride 102 mmol/L (98-107); Estimated CRCL calculation 188 ml/min; Estimated Glomerular Filt Rate > 60; Glucose 94 mg/dL (65-110); Lipase 144 U/L (23-300); Potassium 4.3 mmol/L (3.4-5.0); Sodium 139 mmol/L (137-145)
[2024-08-20 16:30] VITALS: BP 112/70; PULSE 82; RESP 16; TEMP 36.6; O2SAT 98
[2024-08-20 16:58] LABS: Add Urine Microscopic? NO; Appearance Urine Clear (Clear); Bilirubin Urine Negative (Negative); Blood Urine Negative (Negative); Color Urine Yellow (Yellow); Glucose Urine UA Negative (Negative); Ketones Urine Negative (Negative); Leukocyte Esterase Ur Negative LEU/UL (Negative); Nitrate Urine Negative (Negative); Protein Urine Negative (Negative); Specific Grav Ur 1.007 (1.001-1.035); Urobilinogen Urine 0.2 mg/dL (<2.0)
[2024-08-20] MEDS: PIPERACILLN/TAZ 3.375GM/NS50ML 3.375 GM/50 ML BAG IVPB ×2 (17:38→22:48)
[2024-08-20 17:39] VITALS: BP 111/58; PULSE 80; RESP 16; TEMP 36.6; O2SAT 99
--- NOTE | 2024-08-20 18:00 | P.HP_ITS ---
H&P: HPI History of Present Illness Date/Time: 08/20/24 18:00 Chief Complaint: Abdominal Pain Narrative: 29 y/o F presents here with abdominal pain with PMH of migraines. The patient presents here from home for further evaluation of abdominal pain. She reports onset of right upper quadrant pain that has been ongoing since Jun. Pain has been recurrent, she approximates maybe 1-2 times per week. Fur ther describes the pain as epigastric, radiating into her midback (band like), intermittent, aggravated by laying flat, and alleviated by sitting straight up. She has been following with GI outpatient and had a CT performed on 08/09/24 which showed mild intrahepatic and extrahepatic biliary duct dilatation and gallbladder distention, no visible choledocholithiasis. GI planned for an MRCP on 09/01. Had follow-up with general surgery this month as well. However, patient sought evaluation in the ED today due to a sudden increase of pain this morning around 03:30 a.m., 5-610 -> 8-9/10. She was able to go back to bed but the pain continued to worsen and was severe by 10 a.m. She is endorsing associated nausea without vomiting, lightheadedness, poor appetite, and feeling flushed/hot this morning. Denies fever, chills, body aches, constipation, or diarrhea. Patient is also recently and delivered on 05/14/24. Currently breast-feeding. Initial VS at presentation: 98? F, HR 87, RR 16, 149/96, and 100% on RA. ED workup showed: WBC 10.1, no anemia, no significant electrolyte derangements, creatinine 0.5 and GFR >60, total bilirubin 2.9, AST 632, ALT 483, alk-phos 161, and UA was unremarkable. Abdominal ultrasound showed cholelithiasis with mild gallbladder wall thickening and biliary dilation. Review of Systems Review of Systems: All systems reviewed & are unremarkable except as noted in HPI and below PMFSH Past Medical History Medical History Acne Common bile duct dilation Elevated LFTs Migraines Surgical History Surgical History [place] teeth removed Family History Family History Grandparent Bladder cancer paternal grandfather Cancer of kidney paternal grandfather Social History Social History Smoking status: Never smoker Second hand tobacco smoke exposure: Yes Alcohol intake: never Alcohol use details: social Substance use: never Substance use type: does not use Do You Feel Safe in your Home?: Yes Lack of Transportation: No Lack of Food: Never True Current Housing: I Have Housing Concerned About Future Housing: No Difficulty Paying Gas/Electric Bills: No Difficulty Paying for Meds: No Currently Unemployed: No Education: Bachelor's Degree Difficulty w/ Childcare or Family Care: No Living arrangements: with family Occupation/Education: occupation Gender identity (if verbalized by the patient): Female Sexual Orientation (if Verbalized by the Patient): Straight or Heterosexual Spiritual care concerns: No Meds Home Medications and Allergies Home Medications Medication Instructions Recorded Confirmed Type vits no.126-ferrous fum 1 tablet PO DAILY 09/18/23 08/20/24 History 28 mg iron-folic acid 800 mcg tablet (Classic ) acetaminophen 500 mg tablet 1,000 mg PO Q8H PRN pain #20 tabs 08/09/24 08/20/24 Rx (Tylenol Extra Strength) ibuprofen 800 mg tablet 800 mg PO TID PRN pain #20 tabs 08/09/24 08/20/24 Rx ondansetron 4 mg disintegrating 4 mg PO Q8H PRN nausea and 08/09/24 08/20/24 Rx tablet vomiting #20 tabs Allergies Allergy/AdvReac Type Severity Reaction Status Date / Time No Known Allergies Allergy Verified 08/11/24 09:15 Vital Signs Vital Signs - 24 hr 08/20/24 13:52 Temperature 98.0 F Pulse Rate 87 Respiratory Rate 16 Blood Pressure 149/96 H Pulse Oximetry 100 Oxygen Delivery Room Air Exam Const: General: comfortable and no acute distress Other: , female, nontoxic appearance HENMT: Face/Nose/Sinus: Normal nares present Mouth: Yes moist mucous membranes Eyes: General: appearance normal, both eyes and all related structures Sclera: sclerae normal Pupils: Equal, round and reactive pupils present EOM: EOMs intact bilaterally Resp: Effort & Inspection: normal respiratory effort Auscultation: clear to auscultation bilaterally Cardio: Rate: regular rate Rhythm: regular rhythm Other: S1-S2 present without murmur, rub, ectopy GI: Other: Abdomen soft, nondistended, nontender. Normoactive bowel sounds in all quadrants. Skin: General skin exam: normal color and no rashes or lesions noted Wounds: no wounds Neuro: General: gait normal Speech: normal speech Motor exam (neuro): 5/5 motor strength present throughout Sensory Exam: normal sensation Other: A&O x4 Extrem: General: normal to inspection Psych: Mental Status: mental status grossly normal Affect: normal affect Other: Good insight and judgment, pleasant H&P: Results Labs Labs: Short CBC 08/20/24 Range/Units 15:31 WBC 10.1 H (4.5-10.0) K/mm3 Hgb 13.3 (12.0-15.0) g/dL Hct 40.5 (37.0-47.0) % Plt Count 420 H (150-375) k/mm3 BMP 08/20/24 15:31 Sodium 139 Potassium 4.3 Chloride 102 Carbon Dioxide 28 BUN 14 Creatinine 0.50 L Glucose 94 Calcium 9.8 Liver Function 08/20/24 Range/Units 15:31 Total Bilirubin 2.9 H (0.2-1.3) mg/dL AST 632 H (14-36) U/L ALT 483 H (6-35) U/L Alkaline Phosphatase 161 H (38-126) U/L Albumin 4.7 (3.5-5.1) g/dL Urine 08/20/24 Range/Units 16:34 Urine Color Yellow (Yellow) Urine Appearance Clear (Clear) Urine pH 6.0 (5.0-9.0) Ur Specific [place] 1.007 (1.001-1.035) Urine Protein Negative (Negative) mg/dL Urine Glucose (UA) Negative (Negative) mg/dL Assessment and Plan Assessment and plan (1) Cholelithiasis: Qualifiers: Biliary obstruction: with biliary obstruction Cholecystitis acuity: acute and chronic Cholecystitis presence: with cholecystitis Cholelithiasis location: gallbladder Qualified Code(s): K80.13 - Calculus of gallbladder with acute and chronic cholecystitis with obstruction Code(s): K80.20 - Calculus of gallbladder without cholecystitis without obstruction Status: Acute Assessment and Plan: - did not meet SIRS criteria - US abdomen: Cholelithiasis with mild gallbladder wall thickening and biliary dilatation. Consider cholecystitis in the appropriate clinical setting. - CT abd/pelvis, previous (08/09/24): Mild intrahepatic and extrahepatic biliary duct dilatation and gallbladder distention. No visible choledocholithiasis. Consider MRCP. - GI and General Surgery consulted - started on Zosyn on 08/20 - lipase within normal limits. elevated LFTS (see below), trend. - MRCP ordered - NPO at midnight, bland diet in interim -analgesics p.r.n., currently . Educated to pump and dump if she requires multiple doses of [place] over the course of the day. (2) Elevated LFTs: Code(s): R79.89 - Other specified abnormal findings of blood chemistry Status: Acute Assessment and Plan: - total bilirubin 2.9, AST 632, ALT 483, alk-phos 161. Results similar to lab work drawn on 08/11/2024. - suspect transaminitis secondary to cholelithiasis - trend Plan Diet: [place], NPO at midnight GI Prophylaxis: Pantoprazole IVP DVT Prophylaxis: Low risk Lines: Peripheral Code Status: Full code Quality If No VTE Prophylaxis Answer both mechanical and pharmacologic: Reason no mechanical VTE proph: low risk/not indicated Reason no pharmacologic proph: low risk/not indicated Hospitalist MIPS Advance Care Plan I have confirmed that the patient's Advanced Care Plan is present, code status is documented, or surrogate decision maker is listed in patient medical record.: Yes Medication Reconciliation I have utilized all available resources to obtain, update and review the patients current medications (includes all prescriptions, OTC, herbals, cannabis, and nutritional supplements).: Yes
[2024-08-20 18:14] VITALS: BP 110/76; PULSE 82; RESP 16; TEMP 36.4; O2SAT 99
--- NOTE | 2024-08-20 18:58 | ADMGEN ---
This patient, Stephanie Bryan, was admitted to 2 Medical Room 251-01. Patient/family oriented to hospital policies and general routines including ID bracelet, bed and alarms, visiting hours, pain management, procedures, bathroom and other care routines, personal items, smoking policy, room service/diet, and visiting hours. Information on how to activate the Rapid Response Team has been discussed. Patient/Family are encouraged to report perceived risks to care and to ask questions if they do not understand what they are told or what they should do.
[2024-08-20 19:00] VITALS: BMI 36.9
[2024-08-20 20:13] VITALS: BP 119/71; PULSE 69; RESP 16; TEMP 36.5; O2SAT 98
[2024-08-21] MEDS: ACETAMINOPHEN 325 MG TABLET 650 MG PO ×2 (02:26→08:25)
[2024-08-21] MEDS: PIPERACILLN/TAZ 3.375GM/NS50ML 3.375 GM/50 ML BAG IVPB ×4 (05:05→23:18)
[2024-08-21 05:42] LABS: Basophils Absolute Auto 0.1 K/mm3 (0.0-0.1); Basophils Percent Auto 0.8 % (0.2-1.2); Eosinophils Absolute Auto 0.8 K/mm3 (0-0.3); Eosinophils Percent Auto 10.5 % (0-4.4); Hematocrit 36.7 % (37.0-47.0); Hemoglobin 11.8 g/dL (12.0-15.0); Immature Granulocyte Absolute 0.01 K/mm3 (0.00-0.031); Immature Granulocyte Percent A 0.1 % (0-0.5); Lymphocytes Percent Auto 24.4 % (18.3-44.2); Mean Corpuscular HGB Conc 32.2 g/dl (32-36); Mean Corpuscular Hemoglobin 29.5 pg (26-34); Mean Corpuscular Volume 91.8 fl (80-100); Mean Platelet Volume 9.4 fl (7.4-10.4); Monocytes Absolute Auto 0.5 K/mm3 (0.1-0.6); Monocytes Percent Auto 6.6 % (2.6-8.5); Neutrophils Absolute Auto 4.5 K/mm3 (1.3-6.7); Neutrophils Percent Auto 57.6 % (45.5-73.1); Platelet Count Result 364 k/mm3 (150-375); Red Cell Distribution Width 13.2 % (11.5-14.5); White Blood Count 7.8 K/mm3 (4.5-10.0)
[2024-08-21 05:55] VITALS: BP 99/51; PULSE 57; RESP 18; TEMP 36.8; O2SAT 97
[2024-08-21 05:57] LABS: Alanine Aminotransferase 545 U/L (6-35); Alkaline Phosphatase 155 U/L (38-126); Anion Gap 10 mmol/L (4-12); Aspartate Amino Transferase 500 U/L (14-36); Bilirubin,Total 3.3 mg/dL (0.2-1.3); Blood Urea Nitrogen 14 mg/dL (7-17); Calcium 8.9 mg/dL (8.4-10.2); Carbon Dioxide 24 mmol/L (22-30); Chloride 104 mmol/L (98-107); Estimated CRCL calculation 138 ml/min; Estimated Glomerular Filt Rate > 60; Glucose 97 mg/dL (65-110); Sodium 138 mmol/L (137-145)
--- NOTE | 2024-08-21 07:23 | P.CONGI_ITS ---
Assessment and Plan Assessment and plan (1) Cholelithiasis: Code(s): K80.20 - Calculus of gallbladder without cholecystitis without obstruction Status: Acute Assessment and Plan: here with ruq pain, cholelithiasis and elevate liver enzymes mrcp pending to assess if bile duct stone or other abnormalities, awaiting before deciding is needs ercp she is npo surgery to see patient, will need interval lap chai (2) Elevated LFTs: Code(s): R79.89 - Other specified abnormal findings of blood chemistry Status: Acute Assessment and Plan: GB related, pending mrcp she is post (3) RUQ pain: Code(s): R10.11 - Right upper quadrant pain Status: Acute (4) Common bile duct dilation: Code(s): K83.8 - Other specified diseases of biliary tract Status: Acute GI Consult Note Consult date/time: 08/21/24 07:23 Reason for consult: ruq pain, elevated liver enzymes HPI: Stephanie Bryan is a 29 year old female who is 3 months here with intermittent pain in ruq, first episode 1 month ago then about 2 weeks ago another one and came to ER, had elevated liver enzymes and seeing in our office. Ct scan of abdomen and pelvis Revealed mild intrahepatic and extrahepatic biliary ductal dilation and gallbladder distention. No visible choledocholithiasis. Common bile duct dilated to 11 mm. Labs at that time revea led leukocytosis of 12.0. AST and ALT found to be elevated at 287 and 143 respectively. She was supposed to complete MRCP in few more days but had another episode of severe discomfort in epigastric with radiation to ruq and rt flank, also nausea but no vomiting. ED workup showed: WBC 10.1, total bilirubin 2.9, AST 632, ALT 483, alk-phos 161, and UA was unremarkable. Abdominal ultrasound showed cholelithiasis with mild gallbladder wall thickening and biliary dilation. MRPC is pending. No previous surgeries. She is . Review of Systems Constitutional: Constitutional: Denies headache(s) and Denies weakness Eyes: Eyes: Denies blurry vision ENT: Reports Normal hearing present, Denies headache(s) and Denies neck pain Cardiovascular: Cardiovascular: Denies chest pain and Denies dyspnea Respiratory: Respiratory: Denies dyspnea Gastrointestinal: Gastrointestinal: Reports no additional gastrointestinal complaints Genitourinary: Genitourinary: Denies dysuria Musculoskeletal: Musculoskeletal: Denies neck pain Integumentary/Breasts: Skin/Breast: Denies dry skin Neurologic: Reports Normal hearing present, Denies headache(s) and Denies weakness Psychiatric: Psychiatric: Denies anxiety Endocrine: Endocrine: Denies change in body appearance Hematologic/Lymphatic: Hematologic/Lymphatic: Denies easy bleeding Allergic/Immunologic: Allergic/Immunologic: Denies urticaria PMFSH Past Medical History Medical History (Updated 08/21/24 @ 07:27 by Alejandro Del Valle MD) Acne Common bile duct dilation Elevated LFTs Migraines RUQ pain Surgical History Surgical History [place] teeth removed Family History Family History Grandparent Bladder cancer paternal grandfather Cancer of kidney paternal grandfather Social History Social History Smoking status: Never smoker Second hand tobacco smoke exposure: Yes Alcohol intake: never Alcohol use details: social Substance use: never Substance use type: does not use Do You Feel Safe in your Home?: Yes Lack of Transportation: No Lack of Food: Never True Current Housing: I Have Housing Concerned About Future Housing: No Difficulty Paying Gas/Electric Bills: No Difficulty Paying for Meds: No Currently Unemployed: No Education: Bachelor's Degree Difficulty w/ Childcare or Family Care: No Living arrangements: with family Occupation/Education: occupation Gender identity (if verbalized by the patient): Female Sexual Orientation (if Verbalized by the Patient): Straight or Heterosexual Spiritual care concerns: No Meds Home Medications and Allergies Home Medications Medication Instructions Recorded Confirmed Type vits no.126-ferrous fum 1 tablet PO DAILY 09/18/23 08/20/24 History 28 mg iron-folic acid 800 mcg tablet (Classic ) acetaminophen 500 mg tablet 1,000 mg PO Q8H PRN pain #20 tabs 08/09/24 08/20/24 Rx (Tylenol Extra Strength) ibuprofen 800 mg tablet 800 mg PO TID PRN pain #20 tabs 08/09/24 08/20/24 Rx ondansetron 4 mg disintegrating 4 mg PO Q8H PRN nausea and 08/09/24 08/20/24 Rx tablet vomiting #20 tabs Allergies Allergy/AdvReac Type Severity Reaction Status Date / Time No Known Allergies Allergy Verified 08/11/24 09:15 Vital Signs Vital Signs - 24 hr 08/20/24 13:52 08/20/24 15:30 08/20/24 18:14 Temperature 98.0 F 97.9 F 97.6 F Pulse Rate 87 78 82 Respiratory Rate 16 16 16 Blood Pressure 149/96 H 110/74 110/76 Pulse Oximetry 100 98 99 Oxygen Delivery Room Air 08/20/24 17:39 08/20/24 16:30 08/20/24 20:13 Temperature 97.9 F 97.8 F 97.7 F Pulse Rate 80 82 69 Respiratory Rate 16 16 16 Blood Pressure 111/58 L 112/70 119/71 Pulse Oximetry 99 98 98 Oxygen Delivery 08/21/24 05:55 Temperature 98.2 F Pulse Rate 57 L Respiratory Rate 18 Blood Pressure 99/51 L Pulse Oximetry 97 Oxygen Delivery Exam Const: General: comfortable and no acute distress Other: overweight HENMT: Face/Nose/Sinus: Normal nares present Eyes: General: appearance normal, both eyes and all related structures Neck: Neck: supple Resp: Auscultation: clear to auscultation bilaterally Cardio: Rate: regular rate Rhythm: regular rhythm GI: Inspection: non-distended GI Palp: Yes Soft to palpation and Yes Tender ness to palpation present (GI) (mild ttp in ruq, no rebounc) Auscultation: normal bowel sounds Skin: General skin exam: normal color Neuro: Speech: normal speech Motor exam (neuro): 5/5 motor strength present throughout Extrem: General: normal to inspection Psych: Mental Status: mental status grossly normal Results Labs 08/21/24 05:20 08/21/24 05:20 Labs: Short CBC 08/20/24 08/21/24 Range/Units 15:31 05:20 WBC 10.1 H 7.8 (4.5-10.0) K/mm3 Hgb 13.3 11.8 L (12.0-15.0) g/dL Hct 40.5 36.7 L (37.0-47.0) % Plt Count 420 H 364 (150-375) k/mm3 BMP 08/20/24 08/21/24 15:31 05:20 Sodium 139 138 Potassium 4.3 4.0 Chloride 102 104 Carbon Dioxide 28 24 BUN 14 14 Creatinine 0.50 L 0.70 Glucose 94 97 Calcium 9.8 8.9 Liver Function 08/20/24 08/21/24 Range/Units 15:31 05:20 Total Bilirubin 2.9 H 3.3 H (0.2-1.3) mg/dL AST 632 H 500 H (14-36) U/L ALT 483 H 545 H (6-35) U/L Alkaline Phosphatase 161 H 155 H (38-126) U/L Albumin 4.7 4.0 (3.5-5.1) g/dL Urine 08/20/24 Range/Units 16:34 Urine Color Yellow (Yellow) Urine Appearance Clear (Clear) Urine pH 6.0 (5.0-9.0) Ur Specific [place] 1.007 (1.001-1.035) Urine Protein Negative (Negative) mg/dL Urine Glucose (UA) Negative (Negative) mg/dL
--- NOTE | 2024-08-21 07:30 | P.PNIM_ITS ---
Progress Note: A&P Assessment and Plan (1) Cholelithiasis: Code(s): K80.20 - Calculus of gallbladder without cholecystitis without obstruction Status: Acute Assessment and Plan: - did not meet SIRS criteria - US abdomen: Cholelithiasis with mild gallbladder wall thickening and biliary dilatation. Consider cholecystitis in the appropriate clinical setting. - CT abd/pelvis, previous (08/09/24): Mild intrahepatic and extrahepatic biliary duct dilatation and gallbladder distention. No visible choledocholithiasis. - GI EMRCP today - General Surgery consulted - started on Zosyn on 08/20 - lipase within normal limits. elevated LFTS (see below), trend. - NPO at midnight, bland diet in interim -analgesics p.r.n., currently . Educated to pump and dump if she requires multiple doses of [place] over the course of the day. lipase in the morning check for post ERCP pancreatitis (2) Elevated LFTs: Code(s): R79.89 - Other specified abnormal findings of blood chemistry Status: Acute Assessment and Plan: - total bilirubin 2.9, AST 632, ALT 483, alk-phos 161. Results similar to lab work drawn on 08/11/2024. - suspect transaminitis secondary to cholelithiasis - trend (3) Headache: Code(s): R51.9 - Headache, unspecified Status: Acute Assessment and Plan: Fioricet Plan Diet: [place], NPO at midnight GI Prophylaxis: Pantoprazole IVP DVT Prophylaxis: Low risk Lines: Peripheral Code Status: Full code Time Spent With Patient Time with patient: Greater than 35 minutes Subjective Date/time seen: 08/21/24 07:30 Interval history: 29 y/o F presents here with abdominal pain with PMH of migraines found to have elevated liver enzymes Choledocholithiasis GI and surgery consulted plan for MRCP today. Review of Systems Review of Systems: 12 systems were reviewed and are negative except for as per HPI. All systems reviewed & are unremarkable except as noted in HPI and below Exam Narrative: General: well appearing, appears stated age. HEENT: normocephalic, atraumatic. Mucous membranes moist. EOMI, PERRLA, bilateral sclera anicteric, no conjunctival injection. Neck supple without JVD, lymphadenopathy, or bruit. Respiratory: clear to ascultation bilaterally. No rales/rhonic/wheezes. Cardiovascular: Regular rate and rhythm, normal S1-S2 upon ascultation. No murmurs, rubs, or clicks. PMI is nondisplaced, capillary refill less than 3 second. Abdomen: Soft, round, no pulsatile masses, nondistended and nontender. No rebound, no guarding. No CVA tenderness, no hepatosplenomegaly. Bowel sounds present to all four quadrants. No high pitch or tinkling sounds, resonant to percussion. Extremities: No cyanosis, clubbing, or edema present. Pulses are palpable 2/2. Active ROM to all four extremities. Neuro: Alert and orientated x 4. PERRLA. Cranial nerves 2-12 intact without focal deficit. Skin: Warm, dry, and intact, without rash, erythema, or lesion. Psych: pleasant, cooperative, normal speech, normal affect, no hallucinations, no dysarthia Const: General: comfortable and no acute distress Other: , female, nontoxic appearance HENMT: Face/Nose/Sinus: Normal nares present Mouth: Yes moist mucous membranes Eyes: General: appearance normal, both eyes and all related structures Sclera: sclerae normal Pupils: Equal, round and reactive pupils present EOM: EOMs intact bilaterally Resp: Effort & Inspection: normal respiratory effort Auscultation: clear to auscultation bilaterally Cardio: Rate: regular rate Rhythm: regular rhythm Other: S1-S2 present without murmur, rub, ectopy GI: Other: Abdomen soft, nondistended, nontender. Normoactive bowel sounds in all quadrants. Skin: General skin exam: normal color and no rashes or lesions noted Wounds: no wounds Neuro: General: gait normal Cranial nerves: Yes Equal, round and reactive pupils present Speech: normal speech Motor exam (neuro): 5/5 motor strength present throughout Sensory Exam: normal sensation Other: A&O x4 Extrem: General: normal to inspection Psych: Mental Status: mental status grossly normal Affect: normal affect Other: Good insight and judgment, pleasant Objective Data Vital Signs Vital Signs: Vital Signs - 24 hr 08/20/24 13:52 08/20/24 15:30 08/20/24 18:14 Temperature 98.0 F 97.9 F 97.6 F Pulse Rate 87 78 82 Respiratory Rate 16 16 16 Blood Pressure 149/96 H 110/74 110/76 Pulse Oximetry 100 98 99 Oxygen Delivery Room Air 08/20/24 17:39 08/20/24 16:30 08/20/24 20:13 Temperature 97.9 F 97.8 F 97.7 F Pulse Rate 80 82 69 Respiratory Rate 16 16 16 Blood Pressure 111/58 L 112/70 119/71 Pulse Oximetry 99 98 98 Oxygen Delivery 08/21/24 05:55 Temperature 98.2 F Pulse Rate 57 L Respiratory Rate 18 Blood Pressure 99/51 L Pulse Oximetry 97 Oxygen Delivery Intake/Output Intake/Output: Intake & Output 08/18/24 08/19/24 08/20/24 08/21/24 23:59 23:59 23:59 23:59 Intake Total 100 50 Output Total 200 Balance 100 -150 Meds/Results Medications: Active Medications Generic Name Dose Route Start Last Admin Trade Name Freq PRN Reason Stop Dose Admin Acetaminophen 650 mg 08/20/24 18:10 08/21/24 02:26 Acetaminophen 325 Mg Tablet PO 650 mg Q6H PRN Administration Mild Pain (1-3) or Fever Hydrocodone Bitart/Acetaminophen 1 tab 08/20/24 18:10 Hydrocodone/Acetaminophen (*Crx) 5-325 Mg Tablet PO Q6H PRN Pain Rated 4-6 Piperacillin/Tazobactam/Dextrose 3.375 gm in 50 mls @ 100 mls/hr 08/20/24 23:00 08/21/24 05:35 Zosyn 3.375 Gm/Ns 50 Ml IVPB Infused Q6H YANELI Infusion Ibuprofen 800 mg 08/20/24 22:52 Ibuprofen 400 Mg Tablet PO TID PRN pain Miscellaneous Information 0 each 08/20/24 00:01 08/21/24 04:11 Ibuprofen Clarify Prn Indication Usually For Pain 1-3 Which Would Be Duplicate With Acet XX 09/19/24 00:00 Not Given [facility] Ondansetron HCl 4 mg 08/20/24 18:11 Ondansetron Inj 4 Mg/2 Ml Vial IV PUSH Q6H PRN Nausea And Vomiting Pantoprazole Sodium 40 mg 08/21/24 09:00 Pantoprazole Sodium Iv 40 Mg Vial IV PUSH QAM [facility] Vit/Calcium/Iron/Folic Ac 1 tab 08/21/24 09:00 Multivit/Min/Pren/Fol Ac/Iron Tablet PO DAILY [facility] Radiology Results: ITS Impressions Abdomen Ultrasound 08/20/24 14:33 IMPRESSION: 1: Cholelithiasis with mild gallbladder wall thickening and biliary dilatation. Consider cholecystitis in the appropriate clinical setting. Labs Labs: Laboratory Results - last 24 hr 08/20/24 08/20/24 08/21/24 15:31 16:34 05:20 WBC 10.1 H 7.8 RBC 4.45 4.00 L Hgb 13.3 11.8 L Hct 40.5 36.7 L MCV 91.0 91.8 MCH 29.9 29.5 MCHC 32.8 32.2 RDW 13.1 13.2 Plt Count 420 H 364 MPV 9.4 9.4 Immature Gran % (Auto) 0.3 0.1 Neut % (Auto) 72.5 57.6 Lymph % (Auto) 18.[address] [place] % (Auto) 5.0 6.6 Eos % (Auto) 3.0 10.5 H Baso % (Auto) 0.7 0.8 Lymph # (Auto) 1.[address] [place] # (Auto) 0.5 0.5 Eos # (Auto) 0.3 0.8 H Baso # (Auto) 0.1 0.1 Abs Immat Gran (auto) 0.03 0.01 Absolute Neuts (auto) 7.3 H 4.5 Absolute Nucleated RBC 0.000 0.000 Nucleated RBC % 0.0 0.0 Sodium 139 138 Potassium 4.3 4.0 Chloride 102 104 Carbon Dioxide 28 24 Anion Gap 9 10 BUN 14 14 Creatinine 0.50 L 0.70 Estim Creat Clear Calc 188 138 Estimated GFR > 60 > 60 Glucose 94 97 Calcium 9.8 8.9 Total Bilirubin 2.9 H 3.3 H AST 632 H 500 H ALT 483 H 545 H Alkaline Phosphatase 161 H 155 H Total Protein 8.0 7.0 Albumin 4.7 4.0 Lipase 144 Urine Color Yellow Urine Appearance Clear Urine pH 6.0 Ur Specific [place] 1.007 Urine Protein Negative Urine Glucose (UA) Negative Urine Ketones Negative Ur Blood (Man) Negative Urine Nitrate Negative Urine Bilirubin Negative Urine Urobilinogen 0.2 Leukocyte Esterase Rfl Negative Quality VTE Prophylaxis VTE prophylaxis: mechanical ordered If No VTE Prophylaxis Answer both mechanical and pharmacologic: Reason no pharmacologic proph: low risk/not indicated
[2024-08-21] MEDS: MULTIVIT/MIN/PREN/FOL AC/IRON TABLET 1 TAB PO (08:20)
[2024-08-21] MEDS: PANTOPRAZOLE SODIUM IV 40 MG VIAL IV PUSH (08:20)
--- NOTE | 2024-08-21 11:32 | PC.NURSE ---
pt taken down to MRCP
--- NOTE | 2024-08-21 11:58 | PM.CNGS ---
Assessment and Plan Assessment and plan (1) Choledocholithiasis with cholecystitis: Code(s): K80.40 - Calculus of bile duct with cholecystitis, unspecified, without obstruction Status: Acute Assessment and Plan: await results of MRCP, continue antibiotics for now, will need interval cholecystectomy, appreciate GI input History of Present Illness Consult details Consult date: 08/21/24 Reason for consult: abdominal pain Requesting physician: Alfonso Collins MD Narrative: The patient is a 29-year-old female presenting to the emergency department complaining of severe epigastric, right upper quadrant abdominal pain. Workup in the emergency department, including imaging, is significant for cholecystitis, choledocholithiasis. The patient reports that the symptoms have been intermittent for the last few months. She has been to the emergency department multiple times for the same issues and has actually seen GI as an outpatient. She had an outpatient MRCP scheduled, however had this episode so she re-presented to the emergency room. Of note, the patient is 3 months . Review of Systems Review of Systems: All systems reviewed & are unremarkable except as noted in HPI and below PMFSH Past Medical History Medical History Acne Common bile duct dilation Elevated LFTs Migraines RUQ pain Surgical History Surgical History [place] teeth removed Family History Family History Grandparent Bladder cancer paternal grandfather Cancer of kidney paternal grandfather Social History Social History Smoking status: Never smoker Second hand tobacco smoke exposure: Yes Alcohol intake: never Alcohol use details: social Substance use: never Substance use type: does not use Do You Feel Safe in your Home?: Yes Lack of Transportation: No Lack of Food: Never True Current Housing: I Have Housing Concerned About Future Housing: No Difficulty Paying Gas/Electric Bills: No Difficulty Paying for Meds: No Currently Unemployed: No Education: Bachelor's Degree Difficulty w/ Childcare or Family Care: No Living arrangements: with family Occupation/Education: occupation Gender identity (if verbalized by the patient): Female Sexual Orientation (if Verbalized by the Patient): Straight or Heterosexual Spiritual care concerns: No Meds Home Medications and Allergies Home Medications Medication Instructions Recorded Confirmed Type vits no.126-ferrous fum 1 tablet PO DAILY 09/18/23 08/20/24 History 28 mg iron-folic acid 800 mcg tablet (Classic ) acetaminophen 500 mg tablet 1,000 mg PO Q8H PRN pain #20 tabs 08/09/24 08/20/24 Rx (Tylenol Extra Strength) ibuprofen 800 mg tablet 800 mg PO TID PRN pain #20 tabs 08/09/24 08/20/24 Rx ondansetron 4 mg disintegrating 4 mg PO Q8H PRN nausea and 08/09/24 08/20/24 Rx tablet vomiting #20 tabs Allergies Allergy/AdvReac Type Severity Reaction Status Date / Time No Known Allergies Allergy Verified 08/11/24 09:15 Vital Signs Vital Signs - 24 hr 08/20/24 13:52 08/20/24 15:30 08/20/24 18:14 Temperature 36.7 C 36.6 C 36.4 C Pulse Rate 87 78 82 Respiratory Rate 16 16 16 Blood Pressure 149/96 H 110/74 110/76 Pulse Oximetry 100 98 99 Oxygen Delivery Room Air 08/20/24 17:39 08/20/24 16:30 08/20/24 20:13 Temperature 36.6 C 36.6 C 36.5 C Pulse Rate 80 82 69 Respiratory Rate 16 16 16 Blood Pressure 111/58 L 112/70 119/71 Pulse Oximetry 99 98 98 Oxygen Delivery 08/21/24 05:55 08/21/24 08:20 Temperature 36.8 C Pulse Rate 57 L Respiratory Rate 18 Blood Pressure 99/51 L Pulse Oximetry 97 Oxygen Delivery Room Air Exam Const: General: cooperative, comfortable, no acute distress and obese HENMT: Head: normal to inspection, normocephalic and atraumatic Eyes: General: appearance normal, both eyes and all related structures Neck: Neck: normal visual inspection, full ROM and no lymphadenopathy Resp: Auscultation: clear to auscultation bilaterally Cardio: Rate: regular rate Rhythm: regular rhythm GI: Inspection: normal to inspection and distended GI Palp: Yes abdominal tenderness, Yes Soft to palpation, Yes Tenderness to palpation present (GI), No Guarding due to palpation present (GI) and No Rigid due to palpation Skin: General skin exam: normal color and no rashes or lesions noted Neuro: General: patient oriented x3 and CN's II-XI intact bilaterally Extrem: General: normal to inspection and full ROM Results Labs 08/21/24 05:20 08/21/24 05:20 Labs: Abnormal lab results 08/20/24 08/21/24 Range/Units 15:31 05:20 WBC 10.1 H (4.5-10.0) K/mm3 RBC 4.00 L (4.2-5.4) M/mm3 Hgb 11.8 L (12.0-15.0) g/dL Hct 36.7 L (37.0-47.0) % Plt Count 420 H (150-375) k/mm3 Eos % (Auto) 10.5 H (0-4.4) % Eos # (Auto) 0.8 H (0-0.3) K/mm3 Absolute Neuts (auto) 7.3 H (1.3-6.7) K/mm3 Creatinine 0.50 L (0.7-1.0) mg/dL Total Bilirubin 2.9 H 3.3 H (0.2-1.3) mg/dL AST 632 H 500 H (14-36) U/L ALT 483 H 545 H (6-35) U/L Alkaline Phosphatase 161 H 155 H (38-126) U/L Diabetes panel 08/20/24 08/21/24 Range/Units 15:31 05:20 Sodium 139 138 (137-145) mmol/L Potassium 4.3 4.0 (3.4-5.0) mmol/L Chloride 102 104 (98-107) mmol/L Carbon Dioxide 28 24 (22-30) mmol/L BUN 14 14 (7-17) mg/dL Creatinine 0.50 L 0.70 (0.7-1.0) mg/dL Glucose 94 97 (65-110) mg/dL Calcium 9.8 8.9 (8.4-10.2) mg/dL AST 632 H 500 H (14-36) U/L ALT 483 H 545 H (6-35) U/L Alkaline Phosphatase 161 H 155 H (38-126) U/L Total Protein 8.0 7.0 (6.3-8.2) g/dL Albumin 4.7 4.0 (3.5-5.1) g/dL Calcium panel 08/20/24 08/21/24 Range/Units 15:31 05:20 Calcium 9.8 8.9 (8.4-10.2) mg/dL Albumin 4.7 4.0 (3.5-5.1) g/dL Pituitary panel 08/20/24 08/21/24 Range/Units 15:31 05:20 Sodium 139 138 (137-145) mmol/L Potassium 4.3 4.0 (3.4-5.0) mmol/L Chloride 102 104 (98-107) mmol/L Carbon Dioxide 28 24 (22-30) mmol/L BUN 14 14 (7-17) mg/dL Creatinine 0.50 L 0.70 (0.7-1.0) mg/dL Glucose 94 97 (65-110) mg/dL Calcium 9.8 8.9 (8.4-10.2) mg/dL Adrenal panel 08/20/24 08/21/24 Range/Units 15:31 05:20 Sodium 139 138 (137-145) mmol/L Potassium 4.3 4.0 (3.4-5.0) mmol/L Chloride 102 104 (98-107) mmol/L Carbon Dioxide 28 24 (22-30) mmol/L BUN 14 14 (7-17) mg/dL Creatinine 0.50 L 0.70 (0.7-1.0) mg/dL Glucose 94 97 (65-110) mg/dL Calcium 9.8 8.9 (8.4-10.2) mg/dL Total Bilirubin 2.9 H 3.3 H (0.2-1.3) mg/dL AST 632 H 500 H (14-36) U/L ALT 483 H 545 H (6-35) U/L Alkaline Phosphatase 161 H 155 H (38-126) U/L Total Protein 8.0 7.0 (6.3-8.2) g/dL Albumin 4.7 4.0 (3.5-5.1) g/dL All other labs normal. Imaging Abdominal ultrasound report/results: report reviewed
--- NOTE | 2024-08-21 12:22 | PC.NURSE ---
patient returned to room from [facility]
[2024-08-21] MEDS: ACETAMINOPHEN/BUTALBITAL/CAFFEINE 325-50-40 MG TABLET (FIORICET) 1 TAB PO ×2 (12:42→17:22)
[2024-08-21 13:46] VITALS: BP 107/56; PULSE 60; RESP 18; TEMP 36.6; O2SAT 99
[2024-08-21] MEDS: SODIUM CHLORIDE 0.9% IV 1,000 ML 999 ML IV CONT (18:37)
[2024-08-21 20:30] VITALS: PULSE 60; RESP 18; O2SAT 99
[2024-08-21] MEDS: HYDROcodone/acetaminophen (*CRX) 5-325 MG TABLET 1 TAB PO (20:33)
[2024-08-21] MEDS: MAGNESIUM SULF 2 GM/WATER 50ML 2 GM/50 ML BAG IVPB (20:38)
[2024-08-21] MEDS: SODIUM CHLORIDE 0.9% IV 1,000 ML 190 ML IV CONT (20:39)
[2024-08-21 22:00] VITALS: BP 120/64; PULSE 70; RESP 18; TEMP 36.4; O2SAT 100
[2024-08-22] MEDS: SODIUM CHLORIDE 0.9% IV 1,000 ML 190 ML IV CONT ×2 (02:54→08:34)
[2024-08-22] MEDS: PIPERACILLN/TAZ 3.375GM/NS50ML 3.375 GM/50 ML BAG IVPB (04:57)
[2024-08-22 05:58] LABS: Hematocrit 34.2 % (37.0-47.0); Hemoglobin 11.3 g/dL (12.0-15.0); Mean Corpuscular Hemoglobin 30.4 pg (26-34); Mean Corpuscular Volume 91.9 fl (80-100); Mean Platelet Volume 9.3 fl (7.4-10.4); Platelet Count Result 347 k/mm3 (150-375); Red Blood Count 3.72 M/mm3 (4.2-5.4); Red Cell Distribution Width 13.2 % (11.5-14.5); White Blood Count 7.8 K/mm3 (4.5-10.0)
[2024-08-22 06:00] VITALS: BP 94/52; PULSE 71; RESP 18; TEMP 36.7; O2SAT 96
[2024-08-22 06:11] LABS: Alanine Aminotransferase 435 U/L (6-35); Albumin Level 3.6 g/dL (3.5-5.1); Alkaline Phosphatase 142 U/L (38-126); Anion Gap 9 mmol/L (4-12); Aspartate Amino Transferase 260 U/L (14-36); Bilirubin,Total 1.9 mg/dL (0.2-1.3); Blood Urea Nitrogen 8 mg/dL (7-17); Calcium 8.2 mg/dL (8.4-10.2); Carbon Dioxide 23 mmol/L (22-30); Chloride 107 mmol/L (98-107); Estimated CRCL calculation 159 ml/min; Estimated Glomerular Filt Rate > 60; Glucose 83 mg/dL (65-110); Lipase 82 U/L (23-300); Sodium 139 mmol/L (137-145)
[2024-08-22] MEDS: PANTOPRAZOLE SODIUM IV 40 MG VIAL IV PUSH (08:34)
[2024-08-22] MEDS: MULTIVIT/MIN/PREN/FOL AC/IRON TABLET 1 TAB PO (08:34)
--- NOTE | 2024-08-22 08:46 | P.PNIM_ITS ---
Progress Note: A&P Assessment and Plan (1) Cholelithiasis: Code(s): K80.20 - Calculus of gallbladder without cholecystitis without obstruction Status: Acute Assessment and Plan: * Ultrasound of the abdomen showing cholelithiasis with mild gallbladder wall thickening and biliary dilatation * MRCP showed mild intrahepatic and extrahepatic biliary duct dilatation, acute cholecystitis, diffuse hepatic steatosis. * GI consulted * General surgery consulted and will await further recommendations * Zosyn discontinued * Continue pain medication as needed * Labs showing transaminitis (2) Elevated LFTs: Code(s): R79.89 - Other specified abnormal findings of blood chemistry Status: Acute Assessment and Plan: * Secondary to acute cholecystitis * Total bilirubin 1.9, AST 260, ALT 435, alk-phos 142 * Continue to trend (3) Headache: Code(s): R51.9 - Headache, unspecified Status: Acute Assessment and Plan: Continue Fioricet Time Spent With Patient Time with patient: Greater than 35 minutes Subjective Date/time seen: 08/22/24 08:46 Interval history: Interval history: This is a 29 year old female who presented to the hospital on 08/20/24 for evaluation of abdominal pain. Patient is 3 months . Work up in the hospital included an abdominal US which shown cholelithiasis with mild gallbladder wall thickening and biliary dilation. MRCP shown mild intrahepatic and extrahepatic biliary duct dilation, acute cholecystitis, diffuse hepatic steatosis. Initial labs revealed a white blood cell count of 10.1, total bili 2.9, AST 632, ALT 483, alk-phos 161, lipase was normal at 144. UA was negative. General surgery and GI was consulted. Subjective: Patient reports she is feeling better and pain is well controlled. Patient denies. Labs and imaging reviewed. Review of Systems Review of Systems: All systems reviewed & are unremarkable except as noted in HPI and below Constitutional: Constitutional: Reports as per HPI and Reports no additional constitutional complaints Eyes: Eyes: Reports as per HPI and Reports no additional eye complaints ENT: Reports system reviewed and no additional complaints, except as documented and Reports as per HPI Cardiovascular: Cardiovascular: Reports as per HPI and Reports no additional cardiovascular complaints Respiratory: Respiratory: Reports as per HPI and Reports no additional respiratory complaints Gastrointestinal: Gastrointestinal: Reports as per HPI and Reports no additional gastrointestinal complaints Genitourinary: Genitourinary: Reports no additional female genitourinary complaints and Reports as per HPI Musculoskeletal: Musculoskeletal: Reports no additional musculoskeletal complaints and Reports as per HPI Integumentary/Breasts: Skin/Breast: Reports system reviewed and no additional complaints, except as docu and Reports as per HPI Neurologic: Reports system reviewed and no additional complaints, except as documented and Reports as per HPI Psychiatric: Psychiatric: Reports no additional psychiatric complaints and Reports as per HPI Exam Narrative: General: In no acute distress, well nourished Head: atraumatic, no encephalopathy Eyes: EOMI, PERRLA, sclera clear ENT: moist mucous membranes, nasal passages clear Neck: supple, no JVD, no adenopathy, trachea midline Cardiac: Normal S1 and S2. No murmur, gallops or friction rubs, peripheral pulses intact. Respiratory: Lungs clear to auscultation, no adventitious lung sounds Gastrointestinal: soft, non-distended, non-tender, normoactive bowel sounds. : voiding without difficulty. Extremities: moves all extremities well, no edema, good ROM, strength 5/5 Skin: clean, dry, intact. No wounds or lesions. Neuro: Alert and oriented x4, cranial nerves intact, no neuro deficits. Psych: normal mood, normal affect, interactive Objective Data Vital Signs Vital Signs: Vital Signs - 24 hr 08/21/24 13:46 08/21/24 20:30 08/21/24 22:00 Temperature 97.8 F 97.5 F L Pulse Rate 60 60 70 Respiratory Rate 18 18 18 Blood Pressure 107/56 L 120/64 Pulse Oximetry 99 99 100 Oxygen Delivery Room Air 08/22/24 06:00 Temperature 98.1 F Pulse Rate 71 Respiratory Rate 18 Blood Pressure 94/52 L Pulse Oximetry 96 Oxygen Delivery Intake/Output Intake/Output: Intake & Output 08/19/24 08/20/24 08/21/24 08/22/24 23:59 23:59 23:59 23:59 Intake Total 407 595 0472 Output Total 200 Balance 574 014 9159 Meds/Results Medications: Active Medications Generic Name Dose Route Start Last Admin Trade Name Freq PRN Reason Stop Dose Admin Acetaminophen 650 mg 08/20/24 18:10 08/21/24 08:25 Acetaminophen 325 Mg Tablet PO 650 mg Q6H PRN Administration Mild Pain (1-3) or Fever Acetaminophen/Butalbital/Caffeine 1 tab 08/21/24 12:16 08/21/24 17:22 Acetaminophen/Butalbital/Caffeine 325-50-40 Mg Tablet (Fioricet) PO 1 tab Q4H PRN Administration Migraine Headache Hydrocodone Bitart/Acetaminophen 1 tab 08/20/24 18:10 08/21/24 20:33 Hydrocodone/Acetaminophen (*Crx) 5-325 Mg Tablet PO 1 tab Q6H PRN Administration Pain Rated 4-6 Piperacillin/Tazobactam/Dextrose 3.375 gm in 50 mls @ 100 mls/hr 08/20/24 23:00 08/22/24 04:57 Zosyn 3.375 Gm/Ns 50 Ml IVPB 100 mls/hr Q6H YANELI Administration Sodium Chloride 1,000 mls @ 190 mls/hr 08/21/24 17:35 08/22/24 08:34 Normal Saline Iv IV CONT 190 mls/hr .[id number] YANELI Administration Ondansetron HCl 4 mg 08/20/24 18:11 Ondansetron Inj 4 Mg/2 Ml Vial IV PUSH Q6H PRN Nausea And Vomiting Pantoprazole Sodium 40 mg 08/21/24 09:00 08/22/24 08:34 Pantoprazole Sodium Iv 40 Mg Vial IV PUSH 40 mg QAM YANELI Administration Vit/Calcium/Iron/Folic Ac 1 tab 08/21/24 09:00 08/22/24 08:34 Multivit/Min/Pren/Fol Ac/Iron Tablet PO 1 tab DAILY YANELI Administration Radiology Results: ITS Impressions Abdomen Ultrasound 08/20/24 14:33 IMPRESSION: 1: Cholelithiasis with mild gallbladder wall thickening and biliary dilatation. Consider cholecystitis in the appropriate clinical setting. MRCP 08/21/24 12:48 IMPRESSION: 1. Mild intrahepatic and extrahepatic biliary duct dilatation. No choledocholithiasis. 2. Acute cholecystitis. 3. Diffuse hepatic steatosis. Labs Labs: Laboratory Results - last 24 hr 08/22/24 05:19 WBC 7.8 RBC 3.72 L Hgb 11.3 L Hct 34.2 L MCV 91.9 MCH 30.4 MCHC 33.0 RDW 13.2 Plt Count 347 MPV 9.3 Sodium 139 Potassium 4.0 Chloride 107 Carbon Dioxide 23 Anion Gap 9 BUN 8 D Creatinine 0.60 L Estim Creat Clear Calc 159 Estimated GFR > 60 Glucose 83 Calcium 8.2 L Total Bilirubin 1.9 H AST 260 H ALT 435 H Alkaline Phosphatase 142 H Total Protein 7.0 Albumin 3.6 Lipase 82 Imaging Radiologist's impression: EXAMINATION: MR MRCP wo/w con/w 3D wo ind DATE: 08/21/2024 12:18 INDICATION: Right upper quadrant abdominal pain. TECHNIQUE: Magnetic resonance imaging (MRI) of the abdomen was performed without and with 20 mL MultiHance intravenous contrast. Sequences included coronal T2- weighted FS FSE, coronal T2-weighted FSE, axial T1-weighted LAVA, coronal FS FIESTA, axial dual-echo T1-weighted SPGR, coronal lava-FLEX, sagittal T2- weighted FSE, axial T2-weighted FSE, and axial DWI. Thick-slab T2-weighted FSE images were obtained for magnetic resonance cholangiopancreatography (MRCP). Maximum intensity projection 3-D reconstructions of the volumetric data were created by the technologist. Postcontrast sequences included coronal LAVA-flex and time course of axial T1-weighted LAVA. COMPARISON: CT abdomen and pelvis 08/09/2024, ultrasound 08/20/2024 FINDINGS: ABDOMEN MRI: There is diffuse hepatic steatosis. There is mild intrahepatic biliary duct dilatation. The gallbladder is distended and contains gallstones. Gallbladder wall thickening is noted. The spleen, pancreas, adrenal glands, and kidneys are normal. There are no dilated loops of bowel. ABDOMEN MRCP: The common duct is dilated to 11 mm. There is no choledocholithiasis. IMPRESSION: 1. Mild intrahepatic and extrahepatic biliary duct dilatation. No chol edocholithiasis. 2. Acute cholecystitis. 3. Diffuse hepatic steatosis. Reviewed, dictated and finalized at location [facility]. [employer] Quality VTE Prophylaxis VTE prophylaxis: mechanical ordered
--- NOTE | 2024-08-22 08:51 | WPDGIPROGNO ---
Progress Note: A&P Assessment and Plan (1) Cholecystitis with cholelithiasis: Code(s): K80.10 - Calculus of gallbladder with chronic cholecystitis without obstruction Status: Acute Assessment and Plan: mrcp reviewed, no stone in bile duct- no need of ercp lft coming down on iv abx timing of lap chai by surgery will follow as needed (2) RUQ pain: Code(s): R10.11 - Right upper quadrant pain Status: Acute Assessment and Plan: better (3) Elevated LFTs: Code(s): R79.89 - Other specified abnormal findings of blood chemistry Status: Acute Assessment and Plan: slowly trending down (4) Epigastric pain: Code(s): R10.13 - Epigastric pain Status: Acute Subjective Date/time seen: 08/22/24 08:51 Interval history: pain has improved, feeling better Review of Systems Review of Systems: All systems reviewed & are unremarkable except as noted in HPI and below Exam Const: General: comfortable and no acute distress Other: overweight HENMT: Face/Nose/Sinus: Normal nares present Eyes: General: appearance normal, both eyes and all related structures Neck: Neck: supple Resp: Auscultation: clear to auscultation bilaterally Cardio: Rate: regular rate Rhythm: regular rhythm GI: Inspection: non-distended GI Palp: Yes Soft to palpation and Yes Tenderness to palpation present (GI) (minimal ttp in ruq- better) Auscultation: normal bowel sounds Skin: General skin exam: normal color Neuro: Speech: normal speech Motor exam (neuro): 5/5 motor strength present throughout Extrem: General: normal to inspection Psych: Mental Status: mental status grossly normal Objective Data Vital Signs Vital Signs: Vital Signs - 24 hr 08/21/24 13:46 08/21/24 20:30 08/21/24 22:00 Temperature 97.8 F 97.5 F L Pulse Rate 60 60 70 Respiratory Rate 18 18 18 Blood Pressure 107/56 L 120/64 Pulse Oximetry 99 99 100 Oxygen Delivery Room Air 08/22/24 06:00 Temperature 98.1 F Pulse Rate 71 Respiratory Rate 18 Blood Pressure 94/52 L Pulse Oximetry 96 Oxygen Delivery Intake/Output Intake/Output: Intake & Output 08/19/24 08/20/24 08/21/24 08/22/24 23:59 23:59 23:59 23:59 Intake Total 937 534 7652 Output Total 200 Balance 425 811 6351 Meds/Results Medications: Active Medications Generic Name Dose Route Start Last Admin Trade Name [place] PRN Reason Stop Dose Admin Acetaminophen 650 mg 08/20/24 18:10 08/21/24 08:25 Acetaminophen 325 Mg Tablet PO 650 mg Q6H PRN Administration Mild Pain (1-3) or Fever Acetaminophen/Butalbital/Caffeine 1 tab 08/21/24 12:16 08/21/24 17:22 Acetaminophen/Butalbital/Caffeine 325-50-40 Mg Tablet (Fioricet) PO 1 tab Q4H PRN Administration Migraine Headache Hydrocodone Bitart/Acetaminophen 1 tab 08/20/24 18:10 08/21/24 20:33 Hydrocodone/Acetaminophen (*Crx) 5-325 Mg Tablet PO 1 tab Q6H PRN Administration Pain Rated 4-6 Piperacillin/Tazobactam/Dextrose 3.375 gm in 50 mls @ 100 mls/hr 08/20/24 23:00 08/22/24 04:57 Zosyn 3.375 Gm/Ns 50 Ml IVPB 100 mls/hr Q6H YANELI Administration Sodium Chloride 1,000 mls @ 190 mls/hr 08/21/24 17:35 08/22/24 08:34 Normal Saline Iv IV CONT 190 mls/hr .Q5H16M YANELI Administration Ondansetron HCl 4 mg 08/20/24 18:11 Ondansetron Inj 4 Mg/2 Ml Vial IV PUSH Q6H PRN Nausea And Vomiting Pantoprazole Sodium 40 mg 08/21/24 09:00 08/22/24 08:34 Pantoprazole Sodium Iv 40 Mg Vial IV PUSH 40 mg QAM YANELI Administration Vit/Calcium/Iron/Folic Ac 1 tab 08/21/24 09:00 08/22/24 08:34 Multivit/Min/Pren/Fol Ac/Iron Tablet PO 1 tab DAILY YANELI Administration Radiology Results: ITS Impressions Abdomen Ultrasound 08/20/24 14:33 IMPRESSION: 1: Cholelithiasis with mild gallbladder wall thickening and biliary dilatation. Consider cholecystitis in the appropriate clinical setting. MRCP 08/21/24 12:48 IMPRESSION: 1. Mild intrahepatic and extrahepatic biliary duct dilatation. No choledocholithiasis. 2. Acute cholecystitis. 3. Diffuse hepatic steatosis. Labs Labs: Laboratory Results - last 24 hr 08/22/24 05:19 WBC 7.8 RBC 3.72 L Hgb 11.3 L Hct 34.2 L MCV 91.9 MCH 30.4 MCHC 33.0 RDW 13.2 Plt Count 347 MPV 9.3 Sodium 139 Potassium 4.0 Chloride 107 Carbon Dioxide 23 Anion Gap 9 BUN 8 D Creatinine 0.60 L Estim Creat Clear Calc 159 Estimated GFR > 60 Glucose 83 Calcium 8.2 L Total Bilirubin 1.9 H AST 260 H ALT 435 H Alkaline Phosphatase 142 H Total Protein 7.0 Albumin 3.6 Lipase 82
[2024-08-22 09:46] VITALS: O2SAT 96
--- NOTE | 2024-08-22 10:38 | PM.PNGS ---
Progress Note: A&P Assessment and Plan (1) Cholecystitis with cholelithiasis: Code(s): K80.10 - Calculus of gallbladder with chronic cholecystitis without obstruction Status: Acute Assessment and Plan: MRCP reviewed, labs normalizing, exam benign, discussion c pt and re: cholecystectomy, they would prefer doing as outpt next week, ok to dc home c po abx and analgesia, plan for cholecystectomy next wk Subjective Subjective Date/Time Seen: 08/22/24 10:38 Interval history: feels much better, pain resolved, rohit low fat diet Review of Systems Review of Systems: All systems reviewed & are unremarkable except as noted in HPI and below Exam Const: General: cooperative, comfortable and no acute distress Resp: Auscultation: clear to auscultation bilaterally Cardio: Rate: regular rate Rhythm: regular rhythm GI: Inspection: normal to inspection and non-distended GI Palp: Yes abdominal tenderness, Yes Soft to palpation, Yes Tenderness to palpation present (GI), No Guarding due to palpation present (GI) and No Rigid due to palpation Objective Data Vital Signs Vital Signs: Vital Signs - 24 hr 08/21/24 13:46 08/21/24 20:30 08/21/24 22:00 Temperature 36.6 C 36.4 C L Pulse Rate 60 60 70 Respiratory Rate 18 18 18 Blood Pressure 107/56 L 120/64 Pulse Oximetry 99 99 100 Oxygen Delivery Room Air 08/22/24 06:00 08/22/24 09:46 Temperature 36.7 C Pulse Rate 71 Respiratory Rate 18 Blood Pressure 94/52 L Pulse Oximetry 96 96 Oxygen Delivery Room Air Intake/Output Intake/Output: Intake & Output 08/19/24 08/20/24 08/21/24 08/22/24 23:59 23:59 23:59 23:59 Intake Total 691 825 9518.2 Output Total 200 Balance 466 046 3141.2 Meds/Results Medications: Active Medications Generic Name Dose Route Start Last Admin Trade Name Freq PRN Reason Stop Dose Admin Acetaminophen 650 mg 08/20/24 18:10 08/21/24 08:25 Acetaminophen 325 Mg Tablet PO 650 mg Q6H PRN Administration Mild Pain (1-3) or Fever Acetaminophen/Butalbital/Caffeine 1 tab 08/21/24 12:16 08/21/24 17:22 Acetaminophen/Butalbital/Caffeine 325-50-40 Mg Tablet (Fioricet) PO 1 tab Q4H PRN Administration Migraine Headache Hydrocodone Bitart/Acetaminophen 1 tab 08/20/24 18:10 08/21/24 20:33 Hydrocodone/Acetaminophen (*Crx) 5-325 Mg Tablet PO 1 tab Q6H PRN Administration Pain Rated 4-6 Sodium Chloride 1,000 mls @ 100 mls/hr 08/21/24 17:35 08/22/24 09:23 Normal Saline Iv IV CONT 100 mls/hr .Q10H YANELI Infusion Ondansetron HCl 4 mg 08/20/24 18:11 Ondansetron Inj 4 Mg/2 Ml Vial IV PUSH Q6H PRN Nausea And Vomiting Pantoprazole Sodium 40 mg 08/21/24 09:00 08/22/24 08:34 Pantoprazole Sodium Iv 40 Mg Vial IV PUSH 40 mg QAM YANELI Administration Vit/Calcium/Iron/Folic Ac 1 tab 08/21/24 09:00 08/22/24 08:34 Multivit/Min/Pren/Fol Ac/Iron Tablet PO 1 tab DAILY YANELI Administration Radiology Results: ITS Impressions Abdomen Ultrasound 08/20/24 14:33 IMPRESSION: 1: Cholelithiasis with mild gallbladder wall thickening and biliary dilatation. Consider cholecystitis in the appropriate clinical setting. MRCP 08/21/24 12:48 IMPRESSION: 1. Mild intrahepatic and extrahepatic biliary duct dilatation. No choledocholithiasis. 2. Acute cholecystitis. 3. Diffuse hepatic steatosis. Labs Labs: Laboratory Results - last 24 hr 08/22/24 05:19 WBC 7.8 RBC 3.72 L Hgb 11.3 L Hct 34.2 L MCV 91.9 MCH 30.4 MCHC 33.0 RDW 13.2 Plt Count 347 MPV 9.3 Sodium 139 Potassium 4.0 Chloride 107 Carbon Dioxide 23 Anion Gap 9 BUN 8 D Creatinine 0.60 L Estim Creat Clear Calc 159 Estimated GFR > 60 Glucose 83 Calcium 8.2 L Total Bilirubin 1.9 H AST 260 H ALT 435 H Alkaline Phosphatase 142 H Total Protein 7.0 Albumin 3.6 Lipase 82
--- NOTE | 2024-08-22 13:35 | P.DS_ITS ---
DS: Admitting Diagnosis Discharge Date 08/22/24 Admitting Diagnosis Cholelithiasis Transaminitis DS: Summary Hospital Course Reason for hospitalization: Cholelithiasis Transaminitis Hospital Course: This is a 29 year old female who presented to the hospital on 08/20/24 for evaluation of abdominal pain. Patient is 3 months . Work up in the hospital included an abdominal US which shown cholelithiasis with mild gallbladder wall thickening and biliary dilation. MRCP shown mild intrahepatic and extrahepatic biliary duct dilation, acute cholecystitis, diffuse hepatic steatosis. Initial labs revealed a white blood cell count of 10.1, total bili 2.9, AST 632, ALT 483, alk-phos 161, lipase was normal at 144. UA was negative. General surgery and GI was consulted. Plan for surgery on an outpatient basis considering liver enzymes are trending downward. She is stable for discharge at this time. She denies any new complaints. She states her nausea and pain is well controlled. She will continue oral antibiotics until surgery this week with general surgery team. Final diagnosis: Acute cholecystitis, transaminitis Status at Discharge Cognitive/behavioral status at discharge: Alert and oriented x3 Functional status at discharge: independent ambulation Overall status at discharge: patient is progressing back to baseline Time Spent with Patient Time attestation: Total time spent providing and/or coordinating discharge services: Time spent: Greater than 30 minutes Exam Narrative: General: In no acute distress, well nourished Head: atraumatic, no encephalopathy Eyes: EOMI, PERRLA, sclera clear ENT: moist mucous membranes, nasal passages clear Neck: supple, no JVD, no adenopathy, trachea midline Cardiac: Normal S1 and S2. No murmur, gallops or friction rubs, peripheral pulses intact. Respiratory: Lungs clear to auscultation, no adventitious lung sounds, currently on room air Gastrointestinal: soft, non-distended, non-tender, normoactive bowel sounds. : voiding without difficulty. Extremities: moves all extremities well, no edema Skin: clean, dry, intact. No wounds or lesions. Neuro: Alert and oriented x4, cranial nerves intact, no neuro deficits. Psych: normal mood, normal affect, interactive DS: Data Data Completed and Pending Completed studies during hospitalization: MRCP Abdomen US Pending studies at discharge: None Labs on day of discharge: Labs from last 24 hours 08/22/24 05:19 WBC 7.8 RBC 3.72 L Hgb 11.3 L Hct 34.2 L MCV 91.9 MCH 30.4 MCHC 33.0 RDW 13.2 Plt Count 347 MPV 9.3 Sodium 139 Potassium 4.0 Chloride 107 Carbon Dioxide 23 Anion Gap 9 BUN 8 D Creatinine 0.60 L Estim Creat Clear Calc 159 Estimated GFR > 60 Glucose 83 Calcium 8.2 L Total Bilirubin 1.9 H AST 260 H ALT 435 H Alkaline Phosphatase 142 H Total Protein 7.0 Albumin 3.6 Lipase 82 Procedures/Treatments: None Discharge Plan Discharge Attending physician on discharge: Alfonso Neely Consulting providers: Julieta Kumari; Alejandro Del Valle Discharging Clinician: Carol Barbosa Anticipated Discharge Date/Time: 08/22/24 13:34 Patient Disposition: Home, Self-Care Activity: as tolerated Diet: low fat Discharge Instructions: * General surgery will schedule for surgery next week as outpatient. They will call you however I will list their number below. * Do not breastfeed the entire time and 2 days after stopping your last dose. Then resume breast feeding as indicated. You can either pump and dump the milk or save and srini it for bathing only as breast milk can sooth dry skin or baby acne. * Take pain mediation as needed for your pain. Patient Instructions: Antibiotic Form, Ciprofloxacin (By mouth), Hydrocodone/Acetaminophen (By mouth), Metronidazole (By mouth), Cholecystitis (ED) Patient Language: Mongolian Stand Alone Forms: General Discharge Information Follow-up/Referrals: Julieta Kumari MD [Physician] - 1 Week Discharge Medications: New hydrocodone-acetaminophen 5-325 mg tablet 1 tablet PO Q6H PRN (Reason: pain) Qty: 14 0RF ciprofloxacin HCl 500 mg tablet 500 mg PO Q12H Qty: 14 0RF metronidazole 500 mg tablet 500 mg PO Q12H Qty: 14 0RF Continued Classic 28 mg iron- 800 mcg tablet 1 tablet PO DAILY ibuprofen 800 mg tablet 800 mg PO TID PRN (Reason: pain) Qty: 20 0RF acetaminophen [Tylenol Extra Strength] 500 mg tablet 1,000 mg PO Q8H PRN (Reason: pain) Qty: 20 0RF ondansetron 4 mg tablet,disintegrating 4 mg PO Q8H PRN (Reason: nausea and vomiting) Qty: 20 0RF Date of admission: 08/20/24 18:39 Primary Care Provider: DavidAdelaida Admitting Provider: Alfonso Collins Attending physician on admission: Carol Barbosa Condition: Improved Quality VTE Prophylaxis VTE prophylaxis: mechanical ordered Hospitalist MIPS Heart Failure (Exclusion) Patient has history of Heart Transplant or Left Ventricular Assistive Device?: No IF YES, STOP HERE Heart Failure (Qualifier) Patient has current or prior documentation of LVEF less than or equal to 40%, or mod/servere depressed LVSF?: No IF NO, STOP HERE
[2024-08-22 14:00] VITALS: BP 148/41; PULSE 60; RESP 16; TEMP 36.8; O2SAT 97
== END 2024-08-22 14:30 | disposition home or self-care (01) ==
LOC: ANHED 15:25 → ANH2MED 18:36
PROVIDERS: Nurse Practitioner Gerontology; Physician Assistant; Student in an Organized Health Care Education/Training Program; Admitting Provider Internal Medicine; Emergency Provider Emergency Medicine; PCP Physician Assistant; Visit Provider Nurse Practitioner Acute Care
DX: K80.00 Calculus of gallbladder with acute cholecystitis without obstruction (principal); R74.01 Elevation of levels of liver transaminase levels; E86.0 Dehydration; R51.9 Headache, unspecified; Z79.899 Other long term (current) drug therapy
CPT/HCPCS: 36415; 74183; 76376; 76705; 80053; 81003; 83690; 85025; 85027; 96365; 96375; 99285; A9270; A9577; G0378; J2405; J2470; J2543; J3475; J7030

== ENCOUNTER 2024-08-25 08:11 | Outpatient (CLI) | payer OTHER, SELFPAY ==
[2024-08-25 09:24] LABS: Amylase 75 U/L (30-110)
== END 2024-08-25 08:12 | disposition home or self-care (01) ==
LOC: ANHSURGERY 08:14
PROVIDERS: PCP Physician Assistant; Visit Provider Surgery
DX: Z01.812 Encounter for preprocedural laboratory examination (principal); K80.10 Calculus of gallbladder with chronic cholecystitis without obstruction
CPT/HCPCS: 36415; 82150; 86850; 86900; 86901

== ENCOUNTER 2024-08-27 01:28 | Day surgery (SDC) | payer OTHER, SELFPAY ==
[2024-08-24 11:54] VITALS: BMI 36.2
--- NOTE | 2024-08-24 11:59 | PC.NURSE ---
Report to the Outpatient Waiting Room, entrance under the green pavilion located off [facility], at time _1230_ on date _[id number]_. Planned Procedure Time: _230pm_.? Time changes happen often and if your time is changed the preop area will call you the afternoon before. - You and your visitor will be asked to self-screen and do not enter if you have any COVID symptoms. Please call surgeon if you need to reschedule. - A mask is optional within the hospital at this time. Patients may have clear liquids (water, carbonated beverages, clear teas, apple juice) until 3 hours prior to surgery with a maximum of 20 ounces. - No food from midnight until time of surgery and no smoking Take only the following medications with a SIP of water on the morning of surgery: ___Cipro and Metronidazole if still taking. Ok to take Acetaminophen, Hydocodone and or Zofran if needed. DO NOT STOP ANY OF YOUR OTHER PRESCRIPTION MEDICATIONS PRIOR TO SURGERY EXCEPT THE FOLLOWING Medications to discontinue per physician ___Prenatal vitamin__ _Avoid Ibuprofen until after surgery per Dr Kumari. Date to take last dose__Stop now. Please no make-up, nail greenlandic, hairspray, perfume, deodorant, or body powder the day of surgery.? No jewelry (including any body piercings) or valuables the day of surgery, leave them at home.? Please take a shower or bath the night before, or the morning of, surgery with an antibacterial soap.? Wear comfortable, loose fitting clothing.? - Jewelry must be removed prior to entering the operating room.? Rings and piercings that are not removed may be cut off. - The hospital will not accept responsibility for valuables.? - Please leave all valuables, including medications, at home the day of surgery. If you are going home after surgery, a licensed six horse hitch driver must drive you home.? - NO public transportation without another adult if you receive anesthesia. - We recommend that an adult stay with you for 24 hours following discharge. - We also recommend that you do not drive, make important decision, drink alcoholic beverages, or take any drugs that were not prescribed by your health care provider for at least 24 hours after your discharge time. Follow any additional instructions given to you from your surgeon. Telephone instructions given to __Carmenamadou__and asked if any additional questions and then verbalized understanding. Patient advised to call surgeon office or pre surgery nurse liaison [phone] if any additional questions.
[2024-08-27] VITALS (13 sets, daily range): BP systolic 127–158; BP diastolic 73–103; PULSE 63–100; RESP 12–20; TEMP 36.2; O2SAT 96–100
--- NOTE | 2024-08-27 12:01 | WPDHPUPDATE1 ---
History and Physical Update Update Date/Time: 08/27/24 12:01 History and Physical has been reviewed, including an updated exam of the patient. There are NO changes in the patient's condition. Risks, benefits, and alternatives have been discussed and questions answered. Patient agrees to proceed with procedure.
[2024-08-27] MEDS: ACETAMINOPHEN 500 MG TABLET 1000 MG PO (13:15)
[2024-08-27] MEDS: LACTATED RINGERS 1,000 ML 30 ML IV CONT ×2 (13:20→16:40)
[2024-08-27] MEDS: KETOROLAC 15 MG/ML VIAL (*BKC) IV PUSH (13:22)
[2024-08-27] MEDS: INDOCYANINE GREEN 25 MG VIAL WITH DILUENT 3.75 MG IV PUSH (13:30)
[2024-08-27 13:36] LABS: Alanine Aminotransferase 111 U/L (6-35); Albumin Level 4.5 g/dL (3.5-5.1); Alkaline Phosphatase 127 U/L (38-126); Aspartate Amino Transferase 28 U/L (14-36); Bilirubin,Total 0.7 mg/dL (0.2-1.3)
[2024-08-27 13:37] LABS: BEDSIDEPREGUCG Negative (Negative)
--- NOTE | 2024-08-27 14:04 | P.PNAN_ITS ---
Anes - Initial Pre Proc Eval Procedure: Operation Date: 08/27/24 14:30 Proposed Procedures p Robotic Assisted Cholecystectomy - Julieta Kumari MD Date/Time: 08/27/24 14:04 Surgeon: Julieta Kumari MD Pre Op Diagnosis: Cholecystitis with Stones Patient Data Age: 29 Gender: F Height: 1.75 m Weight: 114 kg Last Vital Signs Temp 36.2 C L 08/27/24 12:30 Pulse 65 08/27/24 12:30 Resp 20 08/27/24 12:30 BP 127/73 08/27/24 12:30 Pulse Ox 100 08/27/24 12:30 O2 Del Method Room Air 08/27/24 12:30 Allergies Allergy/AdvReac Type Severity Reaction Status Date / Time No Known Allergies Allergy Verified 08/27/24 13:34 Home Medications Medication Instructions Recorded Confirmed Type vits no.126-ferrous fum 1 tablet PO DAILY 09/18/23 08/27/24 History 28 mg iron-folic acid 800 mcg tablet (Classic ) acetaminophen 500 mg tablet 1,000 mg PO Q8H PRN pain #20 tabs 08/09/24 08/27/24 Rx (Tylenol Extra Strength) ibuprofen 800 mg tablet 800 mg PO TID PRN pain #20 tabs 08/09/24 08/27/24 Rx ondansetron 4 mg disintegrating 4 mg PO Q8H PRN nausea and 08/09/24 08/27/24 Rx tablet vomiting #20 tabs ciprofloxacin HCl 500 mg tablet 500 mg PO Q12H #14 tabs 08/22/24 08/27/24 Rx hydrocodone 5 mg-acetaminophen 325 1 tablet PO Q6H PRN pain #14 tabs 08/22/24 08/27/24 Rx mg tablet metronidazole 500 mg tablet 500 mg PO Q12H #14 tabs 08/22/24 08/27/24 Rx Laboratory Tests 08/27/24 08/27/24 13:10 13:36 Total Bilirubin 0.7 mg/dL (0.2-1.3) Direct Bilirubin 0.0 mg/dL (0-0.3) AST 28 U/L (14-36) ALT 111 H U/L (6-35) Alkaline Phosphatase 127 H U/L (38-126) Total Protein 8.0 g/dL (6.3-8.2) Albumin 4.5 g/dL (3.5-5.1) POC Urine HCG, Qual Negative (Negative) Patient hx anesthesia problems: none Family hx anesthesia problems: none Results Review: All pre-operative results and documents have been reviewed as part of the pre- operative evaluation. [facility] Past Medical History Medical History Acne Cholecystitis with cholelithiasis Common bile duct dilation Elevated LFTs Migraines RUQ pain Surgical History Surgical History Gardners teeth removed Family History Family History Grandparent Bladder cancer paternal grandfather Cancer of kidney paternal grandfather Social History Social History Smoking status: Never smoker Second hand tobacco smoke exposure: Yes Alcohol intake: never Alcohol use details: social Substance use: never Substance use type: does not use Do You Feel Safe in your Home?: Yes Lack of Transportation: No Lack of Food: Never True Current Housing: I Have Housing Concerned About Future Housing: No Difficulty Paying Gas/Electric Bills: No Difficulty Paying for Meds: No Currently Unemployed: No Education: Bachelor's Degree Difficulty w/ Childcare or Family Care: No Living arrangements: with family Occupation/Education: occupation Gender identity (if verbalized by the patient): Female Sexual Orientation (if Verbalized by the Patient): Straight or Heterosexual Spiritual care concerns: No Anes - Eval Final PreProcedure Day of Procedure 08/27/24 14:04 Patient weight: obese Heart: regular rate and rhythm Lungs: clear to auscultation Airway: Mallampati scale class 1 Neurological: alert and oriented Last oral intake: >/= 8 hours ASA classification: II Emergent: no Anesthetic plan: proceed Anesthesia type and monitoring: general ETT Results Review: All pre-operative results and documents have been reviewed as part of the pre- operative evaluation. Informed Consent: The patient's anesthetic plan and its attendant risks and benefits were discussed with the patient/family/POA. Questions were solicited and answers provided to the satisfaction of the patient/family/POA.
--- NOTE | 2024-08-27 14:07 | WPDANESEPPF ---
Anes - Initial Pre Proc Eval Procedure: Operation Date: 08/27/24 14:30 Proposed Procedures p Robotic Assisted Cholecystectomy - Julieta Kumari MD Date/Time: 08/27/24 14:07 Surgeon: Julieta Kumari MD Pre Op Diagnosis: Cholecystitis with Stones Patient Data Age: 29 Gender: F Height: 1.75 m Weight: 114 kg Last Vital Signs Temp 97.2 F L 08/27/24 12:30 Pulse 65 08/27/24 12:30 Resp 20 08/27/24 12:30 BP 127/73 08/27/24 12:30 Pulse Ox 100 08/27/24 12:30 O2 Del Method Room Air 08/27/24 12:30 Allergies Allergy/AdvReac Type Severity Reaction Status Date / Time No Known Allergies Allergy Verified 08/27/24 13:34 Home Medications Medication Instructions Recorded Confirmed Type vits no.126-ferrous fum 1 tablet PO DAILY 09/18/23 08/27/24 History 28 mg iron-folic acid 800 mcg tablet (Classic ) acetaminophen 500 mg tablet 1,000 mg PO Q8H PRN pain #20 tabs 08/09/24 08/27/24 Rx (Tylenol Extra Strength) ibuprofen 800 mg tablet 800 mg PO TID PRN pain #20 tabs 08/09/24 08/27/24 Rx ondansetron 4 mg disintegrating 4 mg PO Q8H PRN nausea and 08/09/24 08/27/24 Rx tablet vomiting #20 tabs ciprofloxacin HCl 500 mg tablet 500 mg PO Q12H #14 tabs 08/22/24 08/27/24 Rx hydrocodone 5 mg-acetaminophen 325 1 tablet PO Q6H PRN pain #14 tabs 08/22/24 08/27/24 Rx mg tablet metronidazole 500 mg tablet 500 mg PO Q12H #14 tabs 08/22/24 08/27/24 Rx Laboratory Tests 08/27/24 08/27/24 13:10 13:36 Total Bilirubin 0.7 mg/dL (0.2-1.3) Direct Bilirubin 0.0 mg/dL (0-0.3) AST 28 U/L (14-36) ALT 111 H U/L (6-35) Alkaline Phosphatase 127 H U/L (38-126) Total Protein 8.0 g/dL (6.3-8.2) Albumin 4.5 g/dL (3.5-5.1) POC Urine HCG, Qual Negative (Negative) Patient hx anesthesia problems: none Family hx anesthesia problems: none Results Review: All pre-operative results and documents have been reviewed as part of the pre-operative evaluation. [facility] Past Medical History Medical History Acne Cholecystitis with cholelithiasis Common bile duct dilation Elevated LFTs Migraines RUQ pain Surgical History Surgical History [place] teeth removed Family History Family History Grandparent Bladder cancer paternal grandfather Cancer of kidney paternal grandfather Social History Social History Smoking status: Never smoker Second hand tobacco smoke exposure: Yes Alcohol intake: never Alcohol use details: social Substance use: never Substance use type: does not use Do You Feel Safe in your Home?: Yes Lack of Transportation: No Lack of Food: Never True Current Housing: I Have Housing Concerned About Future Housing: No Difficulty Paying Gas/Electric Bills: No Difficulty Paying for Meds: No Currently Unemployed: No Education: Bachelor's Degree Difficulty w/ Childcare or Family Care: No Living arrangements: with family Occupation/Education: occupation Gender identity (if verbalized by the patient): Female Sexual Orientation (if Verbalized by the Patient): Straight or Heterosexual Spiritual care concerns: No Anes - Eval Final PreProcedure Day of Procedure 08/27/24 14:07 Patient weight: obese Heart: regular rate and rhythm Lungs: clear to auscultation Airway: Mallampati scale class 1 Neurological: alert and oriented Last oral intake: >/= 8 hours ASA classification: III Anesthetic plan: proceed Anesthesia type and monitoring: general ETT and standard monitoring Results Review: All pre-operative results and documents have been reviewed as part of the pre-operative evaluation. BMI 37, otherwise overall good health. Informed Consent: The patient's anesthetic plan and its attendant risks and benefits were discussed with the patient/family/POA. Questions were solicited and answers provided to the satisfaction of the patient/family/POA.
[2024-08-27] MEDS: ceFAZolin 2 GM/D5W 50 ML 2 GM/50 ML BAG IVPB (14:21)
[2024-08-27] MEDS: BUPIVACAINE/EPINEPHRINE 0.5% 50 ML VIAL 30 ML INFILTRATE (14:36)
--- NOTE | 2024-08-27 15:30 | W.PM.PROC2 ---
Procedure Note - Detailed Date of Procedure 08/27/24 Pre-op Diagnosis Cholecystitis with choledocholithiasis Post-op Diagnosis Same Procedure Performed robotic assisted cholecystectomy Surgeon Julieta Kumari MD Anesthesia General and Local Indications 29-year-old female initially presenting to the hospital with cholecystitis and choledocholithiasis. Patient improved with conservative management and now here for interval cholecystectomy. Findings Mild cholecystitis with cholelithiasis Description of Procedure The patient was taken to the operating room and placed in the supine position. After adequate induction of general anesthesia, the patient was prepped and draped in the normal sterile fashion. A time-out was then done to verify the patient's identity, as well as the procedure being performed. I began by making a 8 mm incision in the periumbilical region. A Veress needle was then placed in the peritoneal cavity and CO2 gas was insufflated. After adequate pneumoperitoneum was achieved, the Veress needle was removed and a 8 mm Optiview trocar was placed under direct visualization. Once into the abdominal cavity, the introducer was removed and the laparoscope was placed through this trocar site. Under direct visualization, I placed a further 8 mm port in the left mid abdomen and 2 additional 8 mm ports in the right mid abdomen. The robot was then docked to these ports sites. I then went to the console. The gallbladder was then identified and noted to be moderately inflamed. I was able to place a grasper at the dome of the gallbladder and this was retracted up and over the liver. A 2nd retractor was used to grasp the infundibulum and retracted laterally. This allowed visualization and dissection of the triangle of Calot. There were some omental adhesions to the gallbladder and these were taken down with the cautery. I then began dissection around the triangle Calot. I first identified the cystic duct, I was able to visualize the entirety of the duct from its proximal insertion into the gallbladder to its distal junction with the common hepatic/common bile duct junction. I then used the firefly visualization at this point to confirm the anatomy. The proximal cystic duct was then further skeletonized, clipped, and transected. Next I visualized the cystic artery. Again the structure was skeletonized, clipped, and transected. I then again used firefly to confirm anatomy and no aberrant anatomy was noted. I then used the Bovie cautery to take down the peritoneal attachments of the gallbladder off the liver bed. Once the gallbladder specimen was completely detached, an Endo pouch was placed through the left 8 mm port site and the gallbladder specimen was placed in the endo-pouch and subsequently removed. Of note, I made a cholecystostomy and decompressed the gallbladder to facilitate removal. I then re-examined the right upper quadrant. Hemostasis was noted in the liver bed and the clips were noted to be in good position on both the duct and the artery. No other pathology was seen in the right upper quadrant. All instruments were then removed and the robot was undocked. The abdomen was then desufflated and all ports were removed. All port sites were then closed with 4-0 Monocryl subcuticular suture. Dermabond was placed on each was wound. The patient tolerated the procedure well and was extubated in the operating room postop. The patient will now be transferred to the recovery room in stable condition. Estimated Blood Loss 10 Drains No Packing No Pathology Yes Complications No immediate complications Condition Stable Disposition PACU [facility] Billing Surgery - Charge Forward: Surgery Billing
[2024-08-27] MEDS: fentaNYL CITRATE INJ (*CRX) 100 MCG/2 ML VIAL 25 MCG IV PUSH ×4 (15:40→15:48)
[2024-08-27] MEDS: HYDROmorphone HCL INJ (*CRX) 1 MG/ML SYR 0.25 MG IV PUSH ×4 (16:15→16:48)
[2024-08-27] MEDS: ONDANSETRON INJ 4 MG/2 ML VIAL IV PUSH (16:16)
[2024-08-27] MEDS: diphenhydrAMINE HCl INJ 50 MG/ML VIAL 12.5 MG IV PUSH ×2 (16:32→16:50)
[2024-08-27] MEDS: SCOPOLAMINE 1 MG PATCH 1 PATCH TRANSDERM (16:39)
== END 2024-08-27 18:20 | disposition home or self-care (01) ==
PROVIDERS: PCP Physician Assistant; Visit Provider Surgery
PROC: 0FT44ZZ Resection of Gallbladder, Percutaneous Endoscopic Approach (ICD-10-PCS; CPT 47562; principal; 2024-08-27 14:30)
DX: K80.10 Calculus of gallbladder with chronic cholecystitis without obstruction (principal); K66.0 Peritoneal adhesions (postprocedural) (postinfection); E66.9 Obesity, unspecified; Z68.37 Body mass index [BMI] 37.0-37.9, adult; Z79.891 Long term (current) use of opiate analgesic; Z79.1 Long term (current) use of non-steroidal anti-inflammatories (NSAID); Z98.890 Other specified postprocedural states; Z80.52 Family history of malignant neoplasm of bladder; Z80.51 Family history of malignant neoplasm of kidney
CPT/HCPCS: 47562; S2900; 36415; 80076; 88304; A9270; J0690; J1100; J1171; J1200; J1885; J2250; J2405; J2704; J3010; J7120